=== PATIENT | male | born 1960 | race Caucasian/White ===

== ENCOUNTER 2020-01-09 07:31 | Outpatient (REF) | payer OTHER, SELFPAY ==
[2020-01-09 11:49] LABS: Estimated Average Glucose 154 mg/dL
[2020-01-15 22:12] LABS: Testosterone, Free 109.9 pg/mL (35.0-155.0); Testosterone, Total 509 ng/dL (250-1100)
== END 2020-01-09 07:32 | disposition home or self-care (01) ==
LOC: HO.MANLR 07:31
PROVIDERS: PCP Internal Medicine; Visit Provider Internal Medicine
DX: E11.9 Type 2 diabetes mellitus without complications (principal); R79.89 Other specified abnormal findings of blood chemistry
CPT/HCPCS: 83036; 84402; 84403

== ENCOUNTER 2020-05-06 07:40 | Outpatient (REF) | payer OTHER, SELFPAY ==
[2020-05-06 11:50] LABS: Alanine Aminotransferase 34 U/L (0-40); Albumin Level 4.2 g/dL (3.5-5.0); Alkaline Phosphatase 84 U/L (39-117); Anion Gap 13 (12-20); Aspartate Amino Transferase 29 U/L (5-37); Bilirubin Total 0.8 mg/dL (0.0-1.0); Blood Urea Nitrogen 14 mg/dL (9-16); Calcium 9.8 mg/dL (8.4-10.2); Carbon Dioxide 23 mmol/L (22-29); Chloride 107 mmol/L (96-108); Estimated Glomerular Filt Rate > 60; Glucose Fasting 167 mg/dL (60-99); Potassium 4.8 mmol/L (3.3-5.1); Sodium 138 mmol/L (135-145); Total Protein 6.8 g/dL (6.5-8.0)
[2020-05-06 16:09] LABS: Estimated Average Glucose 157 mg/dL; Hemoglobin A1c % 7.1 %
== END 2020-05-06 07:41 | disposition home or self-care (01) ==
LOC: HO.MANLDS 07:40
PROVIDERS: PCP Internal Medicine; Visit Provider Internal Medicine
DX: E11.9 Type 2 diabetes mellitus without complications (principal)
CPT/HCPCS: 36415; 80053; 83036

== ENCOUNTER 2020-08-13 07:40 | Outpatient (REF) | payer OTHER, SELFPAY ==
[2020-08-13 12:13] LABS: Alanine Aminotransferase 41 U/L (0-40); Albumin Level 4.3 g/dL (3.5-5.0); Alkaline Phosphatase 80 U/L (39-117); Anion Gap 12 (12-20); Aspartate Amino Transferase 23 U/L (5-37); Bilirubin Total 0.8 mg/dL (0.0-1.0); Blood Urea Nitrogen 20 mg/dL (9-16); Calcium 10.1 mg/dL (8.4-10.2); Carbon Dioxide 24 mmol/L (22-29); Chloride 106 mmol/L (96-108); Cholesterol 179 mg/dL; Estimated Glomerular Filt Rate > 60; Glucose Fasting 151 mg/dL (60-99); HDL Cholesterol 37 mg/dL; LDL Cholesterol Calculated 110 mg/dl; Potassium 4.7 mmol/L (3.3-5.1); Sodium 137 mmol/L (135-145); Total Protein 6.8 g/dL (6.5-8.0); Triglycerides 164 mg/dL
[2020-08-13 12:29] LABS: Estimated Average Glucose 160 mg/dL; Hemoglobin A1c % 7.2 %
[2020-08-13 12:35] LABS: Creatinine Urine 114.37 mg/dL; Microalbum/Creatinine Ratio Ur 8.7 ug/mg cr
== END 2020-08-13 07:41 | disposition home or self-care (01) ==
LOC: HO.MANLDS 07:40
PROVIDERS: PCP Internal Medicine; Visit Provider Internal Medicine
DX: E11.9 Type 2 diabetes mellitus without complications (principal)
CPT/HCPCS: 36415; 80053; 80061; 82043; 83036

== ENCOUNTER 2020-12-31 08:05 | Outpatient (REF) | payer OTHER, SELFPAY ==
[2020-12-31 11:23] LABS: Estimated Average Glucose 177 mg/dL; Hemoglobin A1c % 7.8 %
== END 2020-12-31 08:06 | disposition home or self-care (01) ==
LOC: HO.MANLDS 08:05
PROVIDERS: PCP Internal Medicine; Visit Provider Internal Medicine
DX: E11.9 Type 2 diabetes mellitus without complications (principal)
CPT/HCPCS: 36415; 83036

== ENCOUNTER 2021-04-07 07:32 | Outpatient (REF) | payer OTHER, SELFPAY ==
[2021-04-07 11:08] LABS: Estimated Average Glucose 134 mg/dL; Hemoglobin A1c % 6.3 %
== END 2021-04-07 07:33 | disposition home or self-care (01) ==
LOC: HO.MANLDS 07:32
PROVIDERS: PCP Internal Medicine; Visit Provider Internal Medicine
DX: E11.9 Type 2 diabetes mellitus without complications (principal)
CPT/HCPCS: 36415; 83036

== ENCOUNTER 2021-07-11 07:57 | Outpatient (REF) | payer OTHER, SELFPAY ==
[2021-07-11 11:41] LABS: Estimated Average Glucose 140 mg/dL; Hemoglobin A1c % 6.5 %
[2021-07-11 11:54] LABS: Creatinine Urine 116.25 mg/dL; Microalbum/Creatinine Ratio Ur 7.7 ug/mg cr
[2021-07-11 12:20] LABS: Alanine Aminotransferase 37 U/L (0-40); Albumin Level 4.3 g/dL (3.5-5.0); Alkaline Phosphatase 92 U/L (39-117); Anion Gap 11 (12-20); Aspartate Amino Transferase 23 U/L (5-37); Bilirubin Total 0.8 mg/dL (0.0-1.0); Blood Urea Nitrogen 19 mg/dL (9-16); Calcium 10.2 mg/dL (8.4-10.2); Carbon Dioxide 25 mmol/L (22-29); Chloride 106 mmol/L (96-108); Cholesterol 168 mg/dL; Estimated Glomerular Filt Rate 54; Glucose Fasting 144 mg/dL (60-99); HDL Cholesterol 37 mg/dL; LDL Cholesterol Calculated 118 mg/dl; Potassium 4.7 mmol/L (3.3-5.1); Sodium 137 mmol/L (135-145); Triglycerides 68 mg/dL
== END 2021-07-11 07:58 | disposition home or self-care (01) ==
LOC: HO.MANLDS 07:57
PROVIDERS: PCP Internal Medicine; Visit Provider Internal Medicine
DX: E11.9 Type 2 diabetes mellitus without complications (principal)
CPT/HCPCS: 36415; 80053; 80061; 82043; 83036

== ENCOUNTER 2021-11-04 10:35 | Outpatient (REF) | payer OTHER, SELFPAY ==
[2021-11-04 11:13] LABS: Estimated Average Glucose 134 mg/dL; Hemoglobin A1C 171.5325 umol/L; Hemoglobin A1c % 6.3 %
[2021-11-04 11:38] LABS: Creatinine Urine 34.72 mg/dL; Microalbumin Urine < 5.0 mg/L
[2021-11-04 11:42] LABS: Alanine Aminotransferase 31 U/L (0-40); Albumin Level 4.2 g/dL (3.5-5.0); Alkaline Phosphatase 83 U/L (39-117); Anion Gap 13 (12-20); Aspartate Amino Transferase 20 U/L (5-37); Bilirubin Total 0.9 mg/dL (0.0-1.0); Blood Urea Nitrogen 18 mg/dL (9-16); Calcium 10.2 mg/dL (8.4-10.2); Carbon Dioxide 25 mmol/L (22-29); Chloride 106 mmol/L (96-108); Cholesterol 128 mg/dL; Estimated Glomerular Filt Rate > 60; Glucose Random 156 mg/dL (60-115); HDL Cholesterol 36 mg/dL; LDL Cholesterol Calculated 70 mg/dl; Potassium 5.3 mmol/L (3.3-5.1); Sodium 139 mmol/L (135-145); Total Protein 6.7 g/dL (6.5-8.0); Triglycerides 111 mg/dL
[2021-11-04 11:56] LABS: Prostate Specific Antigen 0.78 ng/mL (<0.05-4.0)
== END 2021-11-04 10:36 | disposition home or self-care (01) ==
LOC: HO.MANLDS 10:35
PROVIDERS: Visit Provider Internal Medicine
DX: E11.9 Type 2 diabetes mellitus without complications (principal); Z12.5 Encounter for screening for malignant neoplasm of prostate
CPT/HCPCS: 36415; 80053; 80061; 82043; 83036; 84153

== ENCOUNTER 2021-12-23 11:52 | Outpatient (REF) | payer OTHER, SELFPAY ==
--- NOTE | ~2021-12-23 | MR_ITS ---
EXAMINATION: MR LUMBAR SPINE WITHOUT CONTRAST CLINICAL INFORMATION: 61-year-old with self-reported low back and right leg pain, with lower left leg numbness. Lumbar radiculopathy. COMPARISON: None TECHNIQUE: MRI of the lumbar spine was obtained using routine sequences without contrast. FINDINGS: Coronal Alignment: Normal. Sagittal Alignment: There is 4 mm of grade 1 degenerative spondylolisthesis at L4-L5 without spondylolysis. Otherwise normal lumbosacral alignment. Lumbosacral Junction: Normal. 5 nonrib-bearing lumbar-type vertebral bodies. Vertebral Bodies: Normal height. Disc Spaces and Endplates: Moderate disc space height loss at L4-L5 with mild disc desiccation, Schmorl's nodes and mild spondylosis. Remaining lumbar intervertebral disc space heights are well-maintained. There are Schmorl's nodes and disc desiccation with minor spondylosis at L5-S1. Tiny central Schmorl's nodes and mild disc desiccation at L3-L4, L2-L3 and L1-L2. [id number] disc space height loss with central Schmorl's nodes with disc desiccation at T11-T12 with mild spondylosis. Similar findings partially imaged at T10-T11 with a prominent Schmorl's node along the superior endplate of L1. Spinal Canal: No abnormal developmental findings. Bone Marrow: No significant marrow-replacing process or bone marrow edema. Type II degenerative marrow signal changes seen along the endplates of the T11 vertebral body anteriorly. Minimal type II degenerative marrow signal change seen along the anterosuperior corner of L2. Conus Medullaris: Terminates at L1-L2. Morphology and signal is normal. Intradural Nerve Roots: Within normal limits. L5-S1: Diffuse disc bulging is noted with a superimposed left subarticular to foraminal disc herniation with a concentric annular fissure, with mild bilateral facet arthrosis without significant central canal stenosis. Left subarticular disc herniation slightly encroaches on the origin of the left S1 nerve root sleeve. There is severe left-sided and [id number] right-sided neural foraminal stenosis, with impingement on the exiting left L5 nerve root. There is also a mild degree of encroachment on the exiting right L5 nerve root. L4-L5: Unroofing of the posterior disc margin consistent with grade 1 degenerative spondylolisthesis, with superimposed diffuse disc bulging and a superimposed central to right subarticular extruded disc herniation with a cephalad migrated extruded fragment projecting in the right lateral recess at the level of mid body L4 measuring 1.6 cm in greatest craniocaudal height and approximately 0.8 cm in maximum transverse diameter. This likely encroaches on the traversing right L4 nerve root. There is mild flattening of the ventral dural sac at the level of the intervertebral disc space and there is ligamentum flavum thickening with severe bilateral facet arthrosis with subchondral marrow edema on both sides of the facet joints bilaterally with associated subchondral cyst formation and joint effusions. There is borderline central spinal canal stenosis. There is crowding of the subarticular zones, left more than right, and there is severe left-sided and moderate right-sided neural foraminal stenosis, with impingement on the exiting L4 nerve roots, left more than right. L3-L4: Diffuse disc bulging is noted with slight flattening of the ventral dural sac, with mild bilateral facet arthropathy without significant spinal canal stenosis. Mild foraminal narrowing is noted without neural impingement. L2-L3: Small inferior foraminal disc protrusion on the left without neural impingement. Minor facet arthrosis noted without significant canal stenosis. Mild left-sided foraminal narrowing is noted. L1-L2: No significant disc bulge or herniation and no significant facet arthrosis, canal or neuroforaminal stenosis. Paraspinal/Retroperitoneal: The paravertebral soft tissues appear unremarkable. Incidental note is made of multiple simple-appearing bilateral renal parapelvic cysts. Limited evaluation.?No specific follow up recommended based on the current ACR Best Practice Guidelines.?Additionally, there is a 2.9 x 2.6 cm left adrenal mass. Recommend CT of the abdomen without and with contrast to further assess this. MR/MR lumbar spine wo con IMPRESSION: 1. Grade 1 degenerative spondylolisthesis at L4-L5 noted, with disc bulging and a central to right subarticular extruded disc herniation with cephalad migration of a sequestered disc fragment on the right at this level with extensive bilateral facet arthropathy, with severe left-sided and moderate right-sided neural foraminal stenosis, with impingement on the exiting L4 nerve roots bilaterally. 2. Multilevel disc bulging as described above and a small foraminal disc protrusion on the left at L2-L3, with multilevel bilateral facet arthropathy. There is severe left-sided and [id number]-[id number]-gqczal right-sided neural foraminal stenosis at L5-S1 with impingement on the exiting L5 nerve roots, left more than right. 3. Incidental 2.9 cm left adrenal mass. Recommend CT of the abdomen without and with contrast to further assess this utilizing an adrenal mass protocol. The [facility] staff will call to confirm receipt of this report with acknowledgement of the findings and any recommendations.
== END 2021-12-23 11:53 | disposition home or self-care (01) ==
LOC: HO.MRI 11:52
PROVIDERS: PCP Internal Medicine; Visit Provider Physician Assistant
DX: M54.16 Radiculopathy, lumbar region (principal)
CPT/HCPCS: 72148

== ENCOUNTER 2022-02-03 12:13 | Outpatient (REF) | payer OTHER, SELFPAY ==
[2022-02-03 15:07] LABS: Alanine Aminotransferase 30 U/L (0-40); Albumin Level 3.9 g/dL (3.5-5.0); Alkaline Phosphatase 110 U/L (39-117); Anion Gap 15 (12-20); Aspartate Amino Transferase 15 U/L (5-37); Bilirubin Total 0.4 mg/dL (0.0-1.0); Blood Urea Nitrogen 12 mg/dL (9-16); Calcium 10.6 mg/dL (8.4-10.2); Carbon Dioxide 26 mmol/L (22-29); Chloride 103 mmol/L (96-108); Estimated Glomerular Filt Rate > 60; Glucose Random 256 mg/dL (60-115); Potassium 5.2 mmol/L (3.3-5.1); Sodium 139 mmol/L (135-145); Total Protein 6.5 g/dL (6.5-8.0)
== END 2022-02-03 12:14 | disposition home or self-care (01) ==
LOC: HO.MANLDS 12:13
PROVIDERS: Visit Provider Physician Assistant
DX: E11.9 Type 2 diabetes mellitus without complications (principal)
CPT/HCPCS: 36415; 80053

== ENCOUNTER 2022-02-10 10:50 | Outpatient (REF) | payer OTHER, SELFPAY ==
--- NOTE | ~2022-02-10 | CT_ITS ---
EXAMINATION: CT ABDOMEN WITHOUT AND WITH CONTRAST CLINICAL INFORMATION: Mass of left adrenal gland. COMPARISON: None TECHNIQUE: Contiguous axial thin section helical images of the abdomen were performed before and after the administration of oral contrast and 85 mL of Omnipaque 350 intravenous contrast. The data set was reformatted in the coronal and sagittal planes and reviewed on an independent workstation. This CT examination was performed using dose optimization techniques as appropriate, variously including the following: *Automated exposure control *Adjustment of mA and/or kV according to patient size (this includes techniques or standardized protocols for targeted exams where dose is matched to indication/reason for exam; i.e. extremities or head) *Use of iterative reconstruction technique DLP: 425 mGy-cm FINDINGS: LUNG BASES: There is plate-like atelectasis at the right lung base. Heart size is normal. LIVER, GALLBLADDER, AND BILIARY TREE: The liver is normal in size, contour and density. There is a non-enhancing 9 mm hypodensity in the left hepatic lobe, axial image 26/3. No additional lesions seen. There is no intrahepatic ductal dilatation. The gallbladder has been surgically removed. PANCREAS: The pancreas is homogeneous in density and normal in size. The peripancreatic fat borders are preserved. SPLEEN: The spleen is unremarkable. ADRENAL GLANDS AND KIDNEYS: The right adrenal gland is unremarkable. There is a 3.0 x 2.4 x 3 cm lesion in the left adrenal gland. On precontrast exam it measures 14 Hounsfield units on post contrast exam it measures 20 Hounsfield units, and on delayed images it measures 25 Hounsfield units. The absolute washout measures -83.3%, which is indeterminate. The relative washout measures -25.0% which corresponds to indeterminate. The right kidney is unremarkable. There are left parapelvic renal cysts. No radiopaque calculi or enhancing renal mass or hydronephrosis seen. BOWEL LOOPS: There is scattered stool, diverticula and gas seen in the colon without distention. The small bowel loops are of normal caliber. Appendix is partially visualized and appears of normal caliber. No free air or free fluid seen. LYMPH NODES: No abnormal retroperitoneal lymph nodes seen. VASCULAR: The abdominal aorta is of normal caliber. BONES: There is a disc prosthesis at L4-L5 disc level with bilateral pedicular screws and interconnecting rods. No aggressive lytic or sclerotic process seen. CT/CT abdomen wo/w IV con IMPRESSION: 1. 3 cm left adrenal lesion. By CT adrenal washout protocol the lesion is indeterminate. 2. Left parapelvic renal cysts. No radiopaque renal calculi or hydronephrosis. 3. Mild constipation. Colonic diverticulosis without diverticulitis. Fleischner guidelines were followed.
[2022-02-10] MEDS: iohexoL 350 MG/ML 100 ML INFUS..BTL IV (11:44)
== END 2022-02-10 10:51 | disposition home or self-care (01) ==
LOC: HO.CT 10:50
PROVIDERS: PCP Internal Medicine; Visit Provider Physician Assistant
DX: E27.8 Other specified disorders of adrenal gland (principal)
CPT/HCPCS: 74170; Q9967

== ENCOUNTER 2022-02-13 07:32 | Outpatient (REF) | payer OTHER, SELFPAY ==
[2022-02-13 14:48] LABS: Estimated Average Glucose 192 mg/dL; Hemoglobin A1c % 8.3 %
== END 2022-02-13 07:33 | disposition home or self-care (01) ==
LOC: HO.MANLDS 07:32
PROVIDERS: Visit Provider Internal Medicine
DX: E11.9 Type 2 diabetes mellitus without complications (principal)
CPT/HCPCS: 36415; 83036

== ENCOUNTER 2022-04-28 13:44 | Outpatient (REF) | payer OTHER, SELFPAY ==
[2022-04-28 18:49] LABS: Creatinine Urine 147.05 mg/dL; Microalbum/Creatinine Ratio Ur 9.5 ug/mg cr
[2022-04-28 18:49] LABS: Alanine Aminotransferase 26 U/L (0-40); Albumin Level 4.1 g/dL (3.5-5.0); Alkaline Phosphatase 109 U/L (39-117); Anion Gap 13 (12-20); Aspartate Amino Transferase 16 U/L (5-37); Bilirubin Total 0.6 mg/dL (0.0-1.0); Blood Urea Nitrogen 17 mg/dL (9-16); Calcium 10.1 mg/dL (8.4-10.2); Carbon Dioxide 22 mmol/L (22-29); Chloride 109 mmol/L (96-108); Cholesterol 124 mg/dL; Estimated Glomerular Filt Rate > 60; Glucose Random 97 mg/dL (60-115); HDL Cholesterol 39 mg/dL; LDL Cholesterol Calculated 66 mg/dl; Potassium 4.2 mmol/L (3.3-5.1); Sodium 140 mmol/L (135-145); Total Protein 6.4 g/dL (6.5-8.0); Triglycerides 95 mg/dL
[2022-04-29 05:18] LABS: Estimated Average Glucose 134 mg/dL; Hemoglobin A1c % 6.3 %
== END 2022-04-28 13:45 | disposition home or self-care (01) ==
LOC: HO.MANLDS 13:44
PROVIDERS: Visit Provider Internal Medicine
DX: E11.9 Type 2 diabetes mellitus without complications (principal)
CPT/HCPCS: 36415; 80053; 80061; 82043; 83036

== ENCOUNTER 2022-08-05 12:03 | Outpatient (REF) | payer OTHER, SELFPAY ==
[2022-08-05 14:58] LABS: Estimated Average Glucose 114 mg/dL; Hemoglobin A1c % 5.6 %
[2022-08-05 15:13] LABS: Creatinine Urine 339.92 mg/dL; Microalbum/Creatinine Ratio Ur 10.5 ug/mg cr
[2022-08-05 15:18] LABS: Alanine Aminotransferase 27 U/L (0-40); Albumin Level 4.2 g/dL (3.5-5.0); Alkaline Phosphatase 98 U/L (39-117); Anion Gap 17 (12-20); Aspartate Amino Transferase 24 U/L (5-37); Bilirubin Total 1.3 mg/dL (0.0-1.0); Blood Urea Nitrogen 22 mg/dL (9-16); Calcium 10.2 mg/dL (8.4-10.2); Carbon Dioxide 20 mmol/L (22-29); Chloride 107 mmol/L (96-108); Cholesterol 97 mg/dL; Estimated Glomerular Filt Rate 59; Glucose Random 80 mg/dL (60-115); HDL Cholesterol 41 mg/dL; LDL Cholesterol Calculated 47 mg/dl; Potassium 4.4 mmol/L (3.3-5.1); Sodium 140 mmol/L (135-145); Total Protein 6.5 g/dL (6.5-8.0); Triglycerides 49 mg/dL
== END 2022-08-05 12:04 | disposition home or self-care (01) ==
LOC: HO.MANLDS 12:03
PROVIDERS: Visit Provider Internal Medicine
DX: E11.9 Type 2 diabetes mellitus without complications (principal)
CPT/HCPCS: 36415; 80053; 80061; 82043; 83036

== ENCOUNTER 2022-11-20 07:39 | Outpatient (REF) | payer OTHER, SELFPAY ==
[2022-11-20 13:33] LABS: Estimated Average Glucose 111 mg/dL; Hemoglobin A1c % 5.5 % (<6.0)
== END 2022-11-20 07:40 | disposition home or self-care (01) ==
LOC: HO.MANLDS 07:39
PROVIDERS: Visit Provider Internal Medicine
DX: E11.9 Type 2 diabetes mellitus without complications (principal)
CPT/HCPCS: 36415; 83036

== ENCOUNTER 2023-02-16 07:22 | Outpatient (REF) | payer SELFPAY ==
[2023-02-16 13:44] LABS: Estimated Average Glucose 137 mg/dL; Hemoglobin A1c % 6.4 % (<6.0)
[2023-02-16 14:27] LABS: Alanine Aminotransferase 38 U/L (0-40); Alkaline Phosphatase 109 U/L (39-117); Anion Gap 13 (12-20); Aspartate Amino Transferase 29 U/L (5-37); Bilirubin Total 0.5 mg/dL (0.0-1.0); Blood Urea Nitrogen 19 mg/dL (9-16); Calcium 9.9 mg/dL (8.4-10.2); Carbon Dioxide 22 mmol/L (22-29); Chloride 107 mmol/L (96-108); Cholesterol 133 mg/dL (<200); Estimated Glomerular Filt Rate > 60; Glucose Random 127 mg/dL (60-115); HDL Cholesterol 45 mg/dL (>40); LDL Cholesterol Calculated 75 mg/dL (<100); Potassium 4.1 mmol/L (3.3-5.1); Sodium 138 mmol/L (135-145); Total Protein 6.9 g/dL (6.5-8.0); Triglycerides 65 mg/dL (<150)
== END 2023-02-16 07:23 | disposition home or self-care (01) ==
LOC: HO.MANLDS 07:22
PROVIDERS: Visit Provider Internal Medicine
DX: E11.9 Type 2 diabetes mellitus without complications (principal)
CPT/HCPCS: 36415; 80053; 80061; 83036

== ENCOUNTER 2023-06-01 07:36 | Outpatient (REF) | payer OTHER, SELFPAY ==
[2023-06-01 13:12] LABS: MANUAL DIFF FLAG NO
[2023-06-01 13:46] LABS: Basophils Absolute Auto 0.1 X10*3/uL (0.0-0.2); Basophils Percent Auto 1.1 % (0-2); Eosinophils Absolute Auto 0.3 X10*3/uL (0.0-0.4); Eosinophils Percent Auto 5.4 % (0-4); Hematocrit 47.5 % (42.0-52.0); Hemoglobin 15.7 g/dl (14.0-18.0); Imm Gran Abs Auto 0.02 X10*3/uL (0.00-0.03); Imm Gran Pct Auto 0.4 % (0.0-0.4); Lymphocytes Absolute Auto 1.9 X10*3/uL (1.2-4.9); Lymphocytes Percent Auto 34.9 % (20-40); Mean Corpuscular HGB Conc 33.1 g/dl (31.0-36.0); Mean Corpuscular Volume 90.8 fL (80.0-98.0); Mean Platelet Volume 11.2 fL (9.4-12.4); Monocytes Absolute Auto 0.6 X10*3/uL (0.1-1.2); Monocytes Percent Auto 10.9 % (2-11); Neutrophils Absolute Auto 2.6 x10*3/uL (2.0-8.3); Neutrophils Percent Auto 47.3 % (45-73); Platelet Count 256 X10*3/uL (160-400); Red Blood Count 5.23 X10*6/uL (4.60-5.80); Red Cell Distribution Width 13.2 % (11.0-16.0); White Blood Count 5.4 X10*3/uL (4.8-10.8)
[2023-06-01 13:53] LABS: Estimated Average Glucose 131 mg/dL; Hemoglobin A1C 170.2796 umol/L; Hemoglobin A1c % 6.2 % (<6.0)
[2023-06-01 14:11] LABS: Alanine Aminotransferase 47 U/L (0-40); Albumin Level 4.1 g/dL (3.5-5.0); Alkaline Phosphatase 111 U/L (39-117); Anion Gap 11 (12-20); Aspartate Amino Transferase 25 U/L (5-37); Bilirubin Total 0.6 mg/dL (0.0-1.0); Blood Urea Nitrogen 27 mg/dL (9-16); Calcium 9.7 mg/dL (8.4-10.2); Carbon Dioxide 22 mmol/L (22-29); Chloride 111 mmol/L (96-108); Cholesterol 130 mg/dL (<200); Estimated Glomerular Filt Rate 60; Glucose Random 158 mg/dL (60-115); HDL Cholesterol 42 mg/dL (>40); LDL Cholesterol Calculated 76 mg/dL (<100); Sodium 139 mmol/L (135-145); Total Protein 6.8 g/dL (6.5-8.0); Triglycerides 64 mg/dL (<150)
== END 2023-06-01 07:37 | disposition home or self-care (01) ==
LOC: HO.MANLDS 07:36
PROVIDERS: Visit Provider Physician Assistant
DX: E78.2 Mixed hyperlipidemia (principal); E11.9 Type 2 diabetes mellitus without complications
CPT/HCPCS: 36415; 80053; 80061; 83036; 85025

== ENCOUNTER 2023-08-30 07:39 | Outpatient (REF) | payer OTHER, SELFPAY ==
[2023-08-30 13:50] LABS: Estimated Average Glucose 140 mg/dL; Hemoglobin A1c % 6.5 % (<6.0)
[2023-08-30 13:55] LABS: Alanine Aminotransferase 31 U/L (0-40); Albumin Level 4.2 g/dL (3.5-5.0); Alkaline Phosphatase 92 U/L (39-117); Anion Gap 13 (12-20); Aspartate Amino Transferase 28 U/L (5-37); Bilirubin Total 0.7 mg/dL (0.0-1.0); Blood Urea Nitrogen 21 mg/dL (9-16); Calcium 9.7 mg/dL (8.4-10.2); Carbon Dioxide 22 mmol/L (22-29); Chloride 110 mmol/L (96-108); Cholesterol 132 mg/dL (<200); Estimated Glomerular Filt Rate > 60; Glucose Random 150 mg/dL (60-115); HDL Cholesterol 50 mg/dL (>40); LDL Cholesterol Calculated 72 mg/dL (<100); Potassium 4.9 mmol/L (3.3-5.1); Sodium 140 mmol/L (135-145); Total Protein 7.2 g/dL (6.5-8.0); Triglycerides 51 mg/dL (<150)
== END 2023-08-30 07:40 | disposition home or self-care (01) ==
LOC: HO.MANLDS 07:39
PROVIDERS: Visit Provider Internal Medicine
DX: E11.9 Type 2 diabetes mellitus without complications (principal)
CPT/HCPCS: 36415; 80053; 80061; 83036

== ENCOUNTER 2024-07-04 07:26 | Outpatient (REF) | payer OTHER, SELFPAY ==
--- OUTSIDE RECORDS SUMMARY | 2024-07-04 07:29 | XMS_ITS | Data Portability ---
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) MDM MODERATE MUST MEET 2 OUT OF 3 ELEMENTS: PROBLEMS, DATA OR RISK ELEMENT 1: PROBLEMS ADDRESSED 1 OR MORE CHRONIC ILLNESS WITH EXACERBATION OR 2 OR MORE STABLE CHRONIC ILLNESSES OR 1 UNDIAGNOSED NEW PROBLEM OR 1 ACUTE ILLNESS W/SYMPTOMS OR 1 ACUTE COMPLICATED INJURY ELEMENT 2: DATA MUST MEET 1 OF 3 CATEGORIES CATEGORY 1: REVIEW OF PRIOR EXTERNAL NOTES, REVIEW OF RESULTS, ORDERING OF EACH TEST, ASSESSMENT REQUIRING INDEPENDENT HISTORIAN OR CATEGORY 2: INDEPENDENT INTERPRETATION OF TESTS BY ANOTHER PHYSICIAN OR SPECIALIST OR CATEGORY 3: DISCUSSION OF MGT OR TEST INTERPRETATION W/EXTERNAL PHYSICIAN OR SPECIALIST ELEMENT 3: RISK RISK OF COMPLICATIONS AND/OR MORBIDITY OR MORTALITY OF PATIENT MANAGEMENT PROVIDER MUST THOROUGHLY DOCUMENT EACH ELEMENT THAT IS COVERED Not available 09/06/2023 16:05:31 03/13/2024 03/13/2024 Patient agreed and verbally consents to this audio and video Telehealth appt via a secure platform [email or web address] Not available 03/13/2024 11:33:37 04/12/2024 04/12/2024 [address] [place] [address]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) MDM HIGH MUST MEET 2 OUT OF 3 ELEMENTS: PROBLEMS, DATA OR RISK ELEMENT 1: PROBLEMS 1 OR MORE CHRONIC ILLNESS W/SEVERE EXACERBATION, PROGRESSION MAY REQUIRE HOSPITAL LEVEL CARE OR 1 ACUTE OR CHRONIC ILLNESS OR INJURY THAT POSES A THREAT TO LIFE OR BODILY FUNCTION ELEMENT 2: DATA: MUST MEET 2 OF 3 CATEGORIES CATEGORY 1 REVIEW OF PRIOR EXTERNAL NOTES REVIEW OF THE RESULTS ORDERING OF EACH TEST ASSESSMENT REQUIRING INDEPENDENT HISTORIAN(S) CATEGORY 2: INDEPENDENT INTERPRETATION OF TESTS BY ANOTHER PROVIDER/SPECIALI ST CATEGORY 3: DISCUSSION OF MGT OR TEST INTERPRETATION W/EXTERNAL PHYSICIAN/SPECIAL IST ELEMENT 3: RISK HIGH RISK OF MORBIDITY FROM ADDITIONAL DIAGNOSTIC TESTING OR TREATMENT PROVIDER MUST THOROUGHLY DOCUMENT EACH ELEMENT THAT IS COVERED Not available 04/12/2024 16:28:23 Plan of Treatment Reminders Order Date Submit Date Provider Last Modified By Organization Details Last Modified Time Details Appointments FOLLOW UP 15 2024 04:15P M DR BETANCOURT Not available Not available Not available Lab HbA1c (hemoglob in A1c), blood 2024 025 [facility], [address] [place] [address], [place], [address], 04/12/2024 16:28:06 CMP, serum or plasma 2023 024 [email or web address] [facility] [address], [address], 11/12/2023 09:48:14 lipid panel, blood 2023 024 ATHENAFAX [facility] [address], [address], 11/12/2023 09:15:52 hemoglobi n A1c, QN, blood 2023 024 [facility] [address], [address], 11/12/2023 15:35:40 CBC w/ auto diff 2023 024 [facility] [address], [address], 04/10/2024 13:46:31 hemoglobi n A1c, QN, blood 2023 024 [facility] [address], [address], 11/12/2023 15:35:40 CBC w/ auto diff 2024 024 curt Jimenez [facility] [place], [address] [place] [address], [place], [address], 04/10/2024 13:46:31 Referral None recorded. Procedures None recorded. Surgeries None recorded. Imaging CT, heart, w/o contrast, w/ coronary calcium score 2023 024 [facility], [facility] [place], [address], 12/29/2023 08:17:40 Medication Orders prednison e 10 mg tablet 2023 024 [facility] [address] [place], [address], 03/13/2024 11:33:24 levofloxa ministerio 500 mg tablet 2023 025 [facility] [address] [place], [address], 04/12/2024 16:02:32 codeine 10 mg-guaife nesin 100 mg/5 mL oral liquid 2023 025 [facility] [address] [place], [address], 04/12/2024 16:02:39 cephalexi n 500 mg capsule 2023 024 [facility] [address] [place], [address], 12/13/2023 16:14:36 Patient TargetsNo targets recorded. Patient Instructions Encounter Date Encounter Id Patient Instructions Last Modified By Organization Details Last Modified Time 12/13/2023 [id number] hyperparathyroid i sm: care instructions Not available 12/13/2023 16:34:30 parathyroidectom y : before your surgery Not available 12/13/2023 16:34:30 04/12/2024 [id number] hyperparathyroid i sm: care instructions Not available 04/12/2024 16:26:55 parathyroidectom y : before your surgery Not available 04/12/2024 16:26:55 high blood pressure: care instructions Not available 04/12/2024 16:26:55 learning about high blood pressure Not available 04/12/2024 16:26:55 high cholesterol : care instructions [email or web address] Not available 04/12/2024 16:26:55 Reason for Referral None Reported. Results Created Date Observation Date Name Description Value Unit Range Abnormal Flag Note LastModifiedBy Organization Detail LastModifiedTime 01/13/20 24 01/13/2024 CT, heart , w/o contr ast, w/ coron celestine calci um score No observ ation record ed. [email or web address] [facility] [address], [place], [address], 01/17/2024 09:22:30 Result Notes None recorded. Problems Name Problem SNOMED Code Status Onset Date Resolution Date Notes Provider Name and Address Organization Details Recorded Time Type 2 diabetes mellitus 26536126 Active 2017 Kristy tarango [facility] 4 10:06:39 COVID-19 183382489 Active 2021 Kristy tarango [facility] 4 10:07:35 Hand pain 64320569 Active 2021 Kristy tarango [facility] 4 10:07:35 Hand pain 70682505 Active 2021 Kristy tarango [facility] 4 10:07:35 Paronych ia of toe of left foot 5665523745 2770853 Active 2021 Kristy tarango [facility] 4 10:07:35 Lumbago with sciatica 516072029 Active 2021 Kristy tarango [facility] 4 10:07:24 Constipa tion 20628407 Active 2021 Kristy tarango [facility] 4 10:07:35 Lumbar radiculo mayte 964100836 Active 2021 Kristy tarango [facility] 4 10:07:24 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 9354165066 49270 Active 2021 Kristy tarango [facility] 4 10:07:24 Mass of left adrenal gland 7772194321 0115325 Active 2021 Kristy tarango [facility] 4 10:07:24 Spinal stenosis of lumbar region 38858941 Active 2021 Kristy tarango [facility] 4 10:07:24 Sinus tachycar surinder 02780438 Active 2021 Not Available [facility] 3 09:31:20 Ingrowin g toenail 918495188 Active 2022 Kristy tarango [facility] 4 10:07:35 Hyperlip idemia 70465819 Active 2017 resolved with diet Kristy tarango [facility] 4 10:07:24 Impaired fasting glycemia 150716786 Completed 201701/26/2018 Issac Betancourt, DO [address] [place] [address], [address], [facility] 8 16:36:31 Hyperpar athyroid ism 65113685 Active 2017 Kristy tarango [facility] 4 10:07:24 Pancreat itis 82199406 Active 2017 Resolved Kristy tarango [facility] 4 10:07:24 [facility] hyperten jen 19436465 Active 2017 Kristy tarango [facility] 4 10:07:24 Streptoc occal sore throat 54422879 Active 2023 Kristy tarango [facility] 4 10:07:35 Erectile dysfunct ion 231661333 [facility] 20[facility] 4 10:07:24 Infectio n of toe 929259199 [facility] 20[facility] 4 10:07:35 Cough 42268289 Active 2023 Issac Betancourt DO [address] [place], [address], [facility] 4 11:23:49 Pneumoni a 298027150 Active 2023 SAVITA MANNING [address] [place] [address], [address], [facility] 4 11:31:40 Problem Notes None recorded. Procedures Surgical History Date Name Laterality Status Provider Name and Address Organization Details Recorded Time 4 Removal of Foreign Body completed SAVITA MANNING [address] [place] [address], [address], [facility] 05/31/2023 12:02:13 Imaging Results Imaging Date Name Status LastModified by Organiz ation Details LastModified Time 01/13/2024 CT, heart, w/o contrast, w/ coronary calcium score completed [email or web address] [address], [place], [address], 01/17/2024 09:22:30 Procedure Notes None recorded. Medical Equipment None Reported. Allergies Allergen ID Allergen Name Allergen Category Reaction Reaction Severity Criticality Documentation Date Start Date Code Code System Note Provider Name and Address Organization Details Recorded Time 93 lisinopri l medicatio n nausea Not available Not available 05/12/2017 35493 RxNorm Nancy Igel [facility] 8 16:19:55 94 doxycycli ne Not available rash Not available Not available 05/12/2017 3640 RxNorm Nancy Igel [facility] 8 16:20:19 Medications Name Sig Start Date Stop Date Status Note LastModified by Organization Details LastModified Time losartan 50 mg tablet TAKE 1 TABLET BY MOUTH EVERY DAY FOR 30 DAYS 07/16 completed Not Available Not Available Not Available amoxicillin 500 mg capsule TAKE 1 CAPSULE BY MOUTH EVERY 8 HOURS UNTIL GONE 08/26 completed Not Available Not Available Not Available metformin 500 mg tablet 1 tab bid 09/21 completed Not Available Not Available Not Available prednisone 10 mg tablet 40 mg x 3 days30 mg x 3 days20 mg x 3 days10 mg x 3 days active Not Available Not Available No t Available albuterol sulfate 2.5 mg/3 mL (0.083 %) solution for nebulizatio n prn 08/19 completed Not Available Not Available Not Available sildenafil 50 mg tablet TAKE 1 TABLET BY MOUTH as needed active Not Available Not Available No t Available azithromyci n 250 mg tablet TAKE 2 TABLETS BY MOUTH TODAY, THEN TAKE 1 TABLET DAILY FOR 4 DAYS DIRECTED 04/12 completed Not Available Not Available Not Available tizanidine 4 mg tablet TAKE 1 TABLET BY MOUTH EVERY 8 HOURS,X30 DAYS 02/20 completed Not Available Not Available Not Available senna 8.6 mg tablet TAKE 2 TABLETS BY MOUTH EVERY DAY FOR 14 DAYS NEEDED 05/30 completed Not Available Not Available Not Available meloxicam 15 mg tablet TAKE 1 TABLET BY MOUTH EVERY DAY active Not Available Not Available No t Available prednisone 20 mg tablet 06/16 completed Not Available Not Available Not Available sulfamethox azole 800 mg-trimetho prim 160 mg tablet 01/31 completed Not Available Not Available Not Available carvedilol 3.125 mg tablet TAKE 1 TABLET BY MOUTH TWICE A DAY active Not Available Not Available No t Available ciclopirox 8 % topical solution 01/06 completed Not Available Not Available Not Available amoxicillin 875 mg tablet TAKE 2 TABLETS SOON POSSIBLE THEN 1 TABLET ORALLY EVERY 12 HOURS UNTIL DONE, USE PROBIOTIC S 12/12 completed Not Available Not Available Not Available cephalexin 500 mg capsule TAKE 1 CAPSULE BY MOUTH THREE TIMES A DAY DIRECTED FOR 10 DAYS 12/12 completed Not Available Not Available Not Available metformin 1,000 mg tablet TAKE 1 TABLET BY MOUTH TWICE A DAY 11/24 completed Not Available Not Available Not Available losartan 25 mg tablet TAKE 1 TABLET BY MOUTH EVERY DAY 01/06 completed Not Available Not Available Not Available diclofenac sodium 75 mg tablet,terry yed release TAKE 1 TABLET BY MOUTH TWICE A DAY WITH MEALS FOR 30 DAYS active Not Available Not Available No t Available codeine 10 mg-guaifene sin 100 mg/5 mL oral liquid Take 10 mL every 4 hours by oral route. 04/12 completed Not Available Not Available Not Available mupirocin 2 % topical ointment APPLY A SMALL AMOUNT TO THE AFFECTED AREA BY TOPICAL ROUTE 3 TIMES PER DAY 01/06 completed Not Available Not Available Not Available cefuroxime axetil 500 mg tablet 06/16 completed Not Available Not Available Not Available levofloxaci n 500 mg tablet 04/12 completed Not Available Not Available Not Available levofloxaci n 750 mg tablet 06/16 completed Not Available Not Available Not Available losartan 100 mg tablet TAKE 1 TABLET BY MOUTH EVERY DAY 2024 active Not Available Not Available Not Avai lable oxycodone 5 mg tablet TAKE 2 TABLET BY MOUTH EVERY 4 HOURS,X7 DAYS, NEEDED FOR PAIN , SEVERE 02/20 completed Not Available Not Available Not Available cyclobenzap rine 5 mg tablet 12/16 completed Not Available Not Available Not Available metformin ER 750 mg tablet,exte nded release 24 hr Take 1 tablet every day by oral route for 30 days. 01/26 completed Not Available Not Available Not Available rosuvastati n 5 mg tablet TAKE 1 TABLET BY MOUTH EVERY DAY 05/06 completed Not Available Not Available Not Available rosuvastati n 10 mg tablet TAKE 1 TABLET BY MOUTH EVERY DAY active Not Available Not Available No t Available Boostrix Tdap 2.5 Lf unit-8 mcg-5 Lf/0.5 mL intramuscul ar syringe ADMINISTE R 0.5ML IN THE MUSCLE DIRECTED 05/08 completed Not Available Not Available Not Available ProAir HFA 90 mcg/actuati on aerosol inhaler prn active Not Available Not Available Not Available oxycodone 10 mg tablet Take 1 tablet every 4 hours by oral route as needed for 14 days. 02/20 completed Not Available Not Available Not Available diclofenac 1 % topical gel APPLY 2 GRAMS TO THE AFFECTED AREA(S) BY TOPICAL ROUTE 4 TIMES PER DAY 07/16 completed Not Available Not Available Not Available Prevnar 13 (PF) 0.5 mL intramuscul ar syringe ADMINISTE R 0.5ML IN THE MUSCLE DIRECTED 08/19 completed Not Available Not Available Not Available Trulicity 0.75 mg/0.5 mL subcutaneou s pen injector INJECT 0.5 ML SUBCUTANE OUSLY EVERY WEEK FOR 28 DAYS 05/30 completed Not Available Not Available Not Available Shingrix (PF) 50 mcg/0.5 mL intramuscul ar suspension, kit ADMINISTE R 0.5ML IN THE MUSCLE DIRECTED 08/19 completed Not Available Not Available Not Available Fluzone Quad (PF) 60 mcg(15 mcgx4)/0.5 mL intramuscul ar syringe 03/21 completed Not Available Not Available Not Available Fluzone Quad (PF) 60 mcg (15 mcg x 4)/0.5 mL IM syringe ADMINISTE R 0.5ML IN THE MUSCLE DIRECTED 05/08 completed Not Available Not Available Not Available Trulicity 3 mg/0.5 mL subcutaneou s pen injector INJECT 0.5 ML SUBCUTANE OUSLY EVERY WEEK FOR 28 DAYS active Not Available Not Available No t Available BinaxNOW COVID-19 Ag Self Test kit TEST DIRECTED TODAY 08/12 completed Not Available Not Available Not Available Vitals Date Recorded Body height Body mass index (BMI) Body weight Heart rate Oxygen saturation Oxygen saturation in Arterial blood by Pulse oximetry Systolic blood pressure Diastolic blood pressure Provider Name and Address Organization Details Last Updated DateTime 4 165.74 cm 30.5 kg/m2 17872.5 9 g 70 /min 97 % 97 % 160 mm[Hg] 80 mm[Hg] Sapna Martin [facility] 4 14:07:53 Date Recorded Body height Body mass index (BMI) Body weight Heart rate Oxygen saturation Oxygen saturation in Arterial blood by Pulse oximetry Systolic blood pressure Diastolic blood pressure Provider Name and Address Organization Details Last Updated DateTime 4 165.74 cm 30.9 kg/m2 78346.1 3 g 94 /min 97 % 97 % 166 mm[Hg] 94 mm[Hg] Kristy Worley [facility] 4 15:48:06 Date Recorded Body height Body mass index (BMI) Body weight Heart rate Oxygen saturation Oxygen saturation in Arterial blood by Pulse oximetry Systolic blood pressure Diastolic blood pressure Provider Name and Address Organization Details Last Updated DateTime 4 165.74 cm 31 kg/m2 61163.3 7 g 90 /min 95 % 95 % 144 mm[Hg] 82 mm[Hg] Sapna Mario [facility] 4 16:16:06 Date Recorded Body height Body mass index (BMI) Body weight Heart rate Oxygen saturation Oxygen saturation in Arterial blood by Pulse oximetry Systolic blood pressure Diastolic blood pressure Provider Name and Address Organization Details Last Updated DateTime 5 165.74 cm 33 kg/m2 49723.4 7 g 86 /min 96 % 96 % 160 mm[Hg] 80 mm[Hg] Sapna Martin [facility] 5 16:03:50 Social History Question Answer Notes LastModified by Organizat ion Details LastModified Time Tobacco Smoking Status [facility] 16:23:36 What Was The Date Of Your Most Recent Tobacco Screening? 04/12/2024 [email or web address] Information not available 04/12/2024 Do You Or Have You Ever Used Any Other Forms Of Tobacco Or Nicotine? No [email or web address] Information not available 02/23/2023 Sex: Unknown Functional Status None recorded. Mental Status None recorded. Family History Nothing Reported. Medical History No medical history recorded. Immunizations Vaccine Type Date Status Note Provider Nam e and Address Organization Details Recorded Time pneumococcal polysaccharide PPV23 0 completed Not Available [facility] 12/14/2021 18:03:00 COVID-19, mRNA, LNP-S, bivalent, PF, 50 mcg/0.5 mL or 25mcg/0.25 mL dose 2 completed Dayan tarango [facility] 02/23/2022 13:24:17 influenza, unspecified formulation 2 completed Dayan tarango [facility] 02/23/2022 13:24:28 Influenza, split virus, quadrivalent, preservative 8 completed Not Available [facility] 12/14/2021 18:03:00 SARS-COV-2 (COVID-19) vaccine, UNSPECIFIED 5 completed Kristy tarango, [facility] 04/04/2024 09:18:32 influenza, unspecified formulation 5 completed Kristy Worley null, [facility] 04/04/2024 09:18:40 Pneumococcal Conjugate, unspecified formulation 5 completed Kristy tarango, [facility] 04/04/2024 09:18:48 zoster, unspecified formulation 0 completed Not Available [facility] 12/14/2021 18:03:00 Tdap 0 completed Not Available [facility] 12/14/2021 18:03:00 zoster recombinant 1 completed Not Available [facility] 12/14/2021 18:03:00 Influenza, split virus, quadrivalent, preservative 0 completed Not Available [facility] 12/14/2021 18:03:00 COVID-19 vaccine, vector-nr, rS-ChAdOx1, PF, 0.5 mL 1 completed Not Available [facility] 12/14/2021 18:03:00 COVID-19 vaccine, vector-nr, rS-ChAdOx1, PF, 0.5 mL 1 completed Not Available [facility] 12/14/2021 18:03:00 Past Encounters Encounter ID Performer Location Encounter Start Date Encounter Closed Date Diagnosis/Indication Diagnosis SNOMED-CT Code Diagnosis ICD10 Code Diagnosis Note [id number] Issac Betancourt DO [facility] [address], [place] [address] 06/16/2017 16:14:20 06/16/2017 16:57:51 Essential hypertension 66244577 I10 stable at home but will watch carefully with Impaired f asting glycemia 484122965 R73.01 emabarking on wgt loss program eat better less carbs, walking increase Obstructiv e sleep apnea syndrome 98219465 G47.33 long discussion re symptoms [id number] Issac Betancourt [facility] Medicine [address],[place] [address] 09/21/2017 16:30:46 09/21/2017 16:58:32 Impaired fasting glycemia 573186062 R73.01 emabarking on wgt loss program eat better less carbs, walking increase continue with metformin but will lower dose due to bowels 750 bid Essential hypertension 33432020 I10 stable at home but will watch carefully with Hypotestosteronism 44369 99709 104 R79.89 will be checking testost level next month looking for a drop in levels to support testost replacemen t therapy [id number] Issac Betancourt [facility] Medicine [address],[place]aron Me[address]ia [facility] [place] [address] 10/26/2017 16:21:07 10/29/2017 08:54:35 Essential hypertension 36904572 I10 stable at home but will watch carefully with Hyperlipidemia 78826195 E78.5 will need to Impaired f asting glycemia 957093189 R73.01 emabarking on wgt loss program eat better less carbs, walking increase continue with metformin but will lower dose due to bowels 750 bid Hyperparathyroidism 6699 9008 E21.3 will need new endocrinol ogist, has not been seen in quite a while currently has not had new lab for this as of late l will get lab for endocrine befopre the appt Hypotestosteronism 60219 96962 104 R79.89 will be checking testost level next month looking for a drop in levels to support testost replacemen t therapy [id number] Issac Betancourt [facility] Medicine [address],[place] [address] 01/26/2018 16:04:18 01/26/2018 16:50:03 Hyperlipidemia 49603834 E78.5 will need to Essential hypertension 87999126 I10 stable at home but will watch carefully with Hyperparathyroidism 6699 9008 E21.3 will need new endocrinol ogist, has not been seen in quite a while currently has not had new lab for this as of late l will get lab for endocrine befopre the appt Hepatitis C screening 41 2120312 Z11.59 Type 2 surinder betes mellitus 73496963 E11.9 new onset as it has crept up on him and a1c is now 7.4 will increase metformin to 1000 bid but will be able to bring glucose down to normal with his wgt loss program and exercise and this will no longer be an issue again as in the past [id number] Issac Betancourt DO [facility] Medicine [address],[place] teresa Mejia [facility] [address] 03/21/2018 15:54:19 03/21/2018 16:41:05 Type 2 diabetes mellitus 78368556 E11.9 has done a great job and is feeling good careful with diet after discussion have increased metformin to 1000 bid but believe will be able to decrease down again soon but will be able to bring glucose down to normal with his wgt loss program and exercise and this will no longer be an issue again as in the past Essential hypertension 77861142 I10 stable at home but has been watching carefully with Hyperparathyroidism 6699 9008 E21.3 has new endocrinol ogist, has been seen continue to follow as noted in endocrine consult Issac Betancourt DO [facility] Medicine [address],[place] te[place] [address] 07/18/2018 16:00:59 07/19/2018 08:57:33 Type 2 diabetes mellitus 40680543 E11.9 has done a great job and is feeling good careful with diet after discussion have increased metformin to 1000 bid but believe will be able to decrease down again soon but will be able to bring glucose down to normal with his wgt loss program and exercise and this will no longer be an issue again as in the past Essential hypertension 51412924 I10 stable at home but has been watching carefully with ` Hyperparathyroidism 6699 9008 E21.3 has new endocrinol ogist, has been seen continue to follow as noted in endocrine consult Hepatitis C screening 41 0051555 Z11.59 Primary er ectile dysfunction 096289332 N52.9 [id number] Issac Betancourt DO [facility] Internal Medicine [address] [facility] [address],[place] [employer] [place] [address] 01/31/2019 16:07:17 01/31/2019 16:51:12 Essential hypertension 82739858 I10 stable at home but has been watching carefully with ` Type 2 surinder betes mellitus 78106690 E11.9 has done a great job and is feeling good careful with diet after discussion have increased metformin to 1000 bid but believe will be able to decrease down again at some point wgt loss program and exercise will continue Paronychia of toe 065366 002 L03.039 [id number] Issac Betancourt [facility] Medicine [address],[place] [address] 05/31/2019 16:13:25 05/31/2019 16:51:01 Type 2 diabetes mellitus 08279087 E11.9 has done a great job and is feeling good careful with diet after discussion is doing good on metformin 1000 mg BID with no problems A1c was 6.6, dropped from 7.1 Essential hypertension 40149723 I10 high today in office 160/90, most likely white coat but states it is stable at home will continue to monitor Osteoarthritis 641976208 M19.90 more so in the left hand in his PIP joints and also in his right thumb will prescribe diclofenac and see if insurance covers it [id number] Issac Betancourt [facility] Medicine [address],[place] [address] 10/02/2019 16:24:02 10/03/2019 10:01:00 Type 2 diabetes mellitus [id number] E11.9 A1C 6.9 stable with BID metformin Will continue to monitor Occasional diarrhea currently Essential hypertension 60141938 I10 BP well controlled with med Hyperlipidemia 87791052 E78.5 Doing great, no need for statin Osteoarthritis 030904936 M19.90 Diclofenac did not help and could not be used regularly Will switch to diclo 75 oral with food Testostero ne level below reference range [id number] R79.89 Feeling fatigued and low libido Need to recheck test [id number] Issac Betancourt [facility] Internal Medicine [address],[place] [address] 01/15/2020 16:08:50 01/15/2020 16:57:28 Type 2 diabetes mellitus 13712411 E11.9 A1C 7.0 stable with BID metformin 1000mg was 6.6 but has gained 5-7 lbs since may told to have him get on a better diet Will continue to monitor Occasional diarrhea currently Essential hypertension 09797226 I10 BP well controlled with med Hyperparathyroidism 6699 9008 E21.3 has new endocrinol ogist, has been seen continue to follow as noted in endocrine consult [id number] SAVITA MANNING [facility] Internal Medicine [address],[place] [address] 02/19/2020 13:45:15 02/19/2020 16:38:07 Diarrhea 47729557 R19.7 most likely a reaction from his metformin as this has happened in the past, probably happened due change in time he took it Type 2 surinder betes mellitus 67679051 E11.9 taking his medication as per patient [id number] Issac Betancourt DO [facility] Internal Medicine [address],[place] [address] 05/08/2020 16:06:14 05/10/2020 12:40:44 Type 2 diabetes mellitus 78147129 E11.9 A1C is 7.1 and was 7.0 las t check stable with BID metformin 1000mg was 6.6 but has gained 5-7 lbs since may told to have him get on a better diet Will continue to monitor Occasional diarrhea currently Essential hypertension 65384102 I10 BP well controlled with med Hyperparathyroidism 6699 9008 E21.3 has new endocrinol ogist, has been seen continue to follow as noted in endocrine consult Hepatitis C screening 41 9463819 Z11.59 Sprain of right wrist 11 [id number] 0518039 S63.501A [id number] Issac Betancourt DO [facility] Internal Medicine [address],[place] [address] 08/19/2020 16:06:33 08/19/2020 16:49:29 Type 2 diabetes mellitus 17304592 E11.9 A1C is 7.1 and was 7.0 las t check stable with BID metformin 1000mg was 6.6 but has gained 5-7 lbs since may told to have him get on a better diet Will continue to monitor Occasional diarrhea currently Essential hypertension 01141477 I10 BP is not well controlled with losart 25 wiil need to increase dose Hyperlipidemia 33640903 E78.5 Doing great, no need for statin Paronychia of toe of left foot due to ingrown toenail 532571109 L60.0 [id number] Issac Betancourt [facility] Internal Medicine [address] [facility] [address] [address] 01/06/2021 15:56:34 01/06/2021 16:42:20 Type 2 diabetes mellitus 89767415 E11.9 A1C is 7.8 and was 7.0 last check stable with BID metformin 1000mg was 6.6 but has gained 5-7 lbs since may told to have him get on a better diet Will continue to monitor for the next 3 months and see if he can cut the carbs down and substitute Hyperlipidemia 32953891 E78.5 Doing great, no need for statin Essential hypertension 53802813 I10 BP is not well controlled this time but he will check at home and let us know if he is still running high if so we will increase the losartan again Hyperparathyroidism 6699 9008 E21.3 has new endocrinol ogist, has been seen continue to follow as noted in endocrine consult [id number] Issac Betancourt DO [facility] Internal Medicine [address],[facility] [place] [address] 04/09/2021 11:44:13 04/09/2021 16:39:16 Essential hypertension 85751284 I10 BP is not well controlled this time but he will check at home and let us know if he is still running high if so we will increase the losartan again Type 2 surinder betes mellitus 60529725 E11.9 A1C is 6.3 and is doing good!!!!!! !!!!!!! it was 7.8 and was 7.0 last check stable with BID metformin 1000mg was 6.6 but has lost weight 15 lbs on a better diet Will continue to monitor for the next 3 months and see if he can cut the carbs down and substitute Hyperparathyroidism 6699 9008 E21.3 cont with new endocrinol ogist, has been seenno new treatments will be seen ing them in may Hyperlipidemia 90216661 E78.5 Doing great, no need for statin Osteoarthritis 716325717 M19.90 Diclofenac did not help and could not be used regularly Will switch to diclo 75 oral with food and seems to help alottold we will always need to be careful and monitor renal status etc [id number] Issac Betancourt DO [facility] Internal Medicine [address],[place] [address] 07/16/2021 16:06:45 07/18/2021 16:07:44 Type 2 diabetes mellitus 08011047 E11.9 A1C is 6.3 and is doing good!!!!!! !!!!!!! it was 7.8 and was 7.0 last check stable with BID metformin 1000mg was 6.6 but has lost weight 15 lbs on a better diet Will continue to monitor for the next 3 months and see if he can cut the carbs down and substitute Essential hypertension 02367370 I10 BP is not well controlled this time but he will check at home and let us know if he is still running high if so we will increase the losartan again Hyperparathyroidism 6699 9008 E21.3 cont with new endocrinol ogist, has been seenno new treatments will be seen ing them in may Hyperlipidemia 42153809 E78.5 Doing great, no need for statin LDL 118 HDL 38 [id number] Issac Betancourt DO [facility] Internal Medicine [address] [facility] [address],[place] Me[place]ia [facility] [place] [address] 11/07/2021 16:08:42 11/07/2021 16:47:57 Type 2 diabetes mellitus 83667307 E11.9 A1C is still 6.3 and was 6.3 and is doing good!!!!!! !!!!!!! it was 7.8 and was 7.0 last check stable with BID metformin 1000mg was 6.6 but has lost weight 15 lbs on a better diet Will continue to monitor for the next 3 months and see if he can cut the carbs down and substitute Essential hypertension 31329309 I10 BP is not well controlled this time but he will check at home and let us know if he is still running high if so we will increase the losartan again Hyperlipidemia 44106292 E78.5 Doing great, no need for statin LDL 118 HDL 38 Hand pain 66199432 M79.6 41 he will try stopping th statin for a week or two to see if this is causing an issuehe is very compliant with med but he has a bad arthritis issue with his hands Paronychia of toe of left foot [id number] 7432123 L03.032 he will be treated but will be seen by dr thomas [id number] SAVITA MANNING [facility] Internal Medicine [address],[place] D [facility] [place] [address] 12/16/2021 14:11:12 12/16/2021 15:00:51 Renewal of prescription 058297843 Z76.0 will refill diclofenac for patient Lumbago with sciatica 20 6479893 M54.41 Constipation 11919124 K5 9.09 [place] [id number] Issac Betancourt DO [facility] Internal Medicine [address], [place] [facility] [address] 02/20/2022 14:57:44 02/20/2022 16:01:07 Mass of left adrenal gland 5764838794 3337176 E27.8 currently not treat as it was a benign cyst Essential hypertension 08866593 I10 BP is not well controlled this time but he will check at home and let us know if he is still running high if so we will increase the losartan again Type 2 surinder betes mellitus 20870084 E11.9 A1C is now up to 8.3 and was 6.3 it was 7.8 and was 7.0 last check stable with BID metformin 1000mg Will continue to monitor for the next 3 months and see if he can cut the carbs down and substitute [id number] Issac Betancourt DO [facility] Internal Medicine [address],[place] [address] 05/06/2022 15:57:48 05/06/2022 16:53:19 Essential hypertension 13518858 I10 BP is not well controlled this time but he will check at home and let us know if he is still running high if so we will increase the losartan again Hyperparathyroidism 6699 9008 E21.3 cont with new endocrinol ogist, has been seenno new treatments will be seen ing them in may Type 2 surinder betes mellitus 83055476 E11.9 A1C is now down to 6.3 as he was up to 8.3 and was 6.3 Will continue to monitor for the next 3 months and see if he can cut the carbs down and substitute hopefully we will be able to get him off the metformin Hyperlipidemia 25664519 E78.5 Doing great, no need for statin LDL 118 HDL 38 [id number] Issac Betancourt DO [facility] Internal Medicine [address],[place] [address] 2022 15:58:15 2022 16:49:12 Hyperparathyroidism 50265790 E21.3 cont with new endocrinol ogist, has been seenno new treatments will be seen ing them in may Essential hypertension 83898531 I10 BP is not well controlled this time but he will check at home and let us know if he is still running high if so we will increase the losartan again Type 2 surinder betes mellitus 97994054 E11.9 A1C is now down to 5.6!!!!!!! he is down 20 lbs was 6.3 as he was up to 8.3 and was 6.3 Will continue to monitor for the next 3 months and see if he can cut the carbs down and substitute hopefully we will be able to get him off the metformin Hepatitis C screening 41 9574268 Z11.59 [id number] Issac Betancourt DO [facility] Internal Medicine [address],[facility] [place] [address] 11/24/2022 16:10:39 11/25/2022 08:08:20 Type 2 diabetes mellitus 07102156 E11.9 A1C is now down to 5.5 and 5.6!!!!!!! he is down 30 lbs was 6.3 as he was up to 8.3 and was 6.3 time for him to stop the metformin he will cut down on the metformin and then stop completely after a couple weekshe has gotten himself down to 165 lbs and feels great bc of the wgt program he is attending Hyperlipidemia 79840493 E78.5 Doing great, no need for statin LDL 118 HDL 38 [id number] Issac Betancourt DO [facility] [address], [place] [address] 02/23/2023 16:04:39 02/23/2023 16:46:49 Type 2 diabetes mellitus 78511071 E11.9 has been eating low carb and high fat mod prot going thru virta programhas been following and doing wellstates did not keep to diet this season Essential hypertension 46764474 I10 BP is not well controlled this time but he will check at home and let us know if he is still running high if so we will increase the losartan again Hyperlipidemia 24237361 E78.5 Doing great, LDL 118 HDL 38 Renewal of prescription 883005932 Z76.0 [id number] SAVITA MANNING [facility] [address] [facility] [address],[place] [address] 05/31/2023 11:29:11 05/31/2023 12:09:42 Tick bite 26540531 W57.XXXA will start on amox, has doxy allergy Essential hypertension 04504768 I10 BP is stable Hyperlipidemia 37284495 E78.2 needs standing orders for appt next week Type 2 surinder betes mellitus 17681945 E11.9 taking his medication as per patient [id number] Issac Betancourt DO [facility] Internal Medicine [address] [facility] [address],[place] [facility] [address] 06/08/2023 15:38:52 06/09/2023 09:45:22 Type 2 diabetes mellitus 31906379 E11.9 has been eating low carb and high fat mod prot going thru virta programhas been following and doing wellstates did not keep to diet this season Essential hypertension 01309686 I10 BP is not well controlled this time but he will check at home and let us know if he is still running high if so we will increase the losartan again Hyperlipidemia 90367932 E78.2 Doing great, LDL 118 HDL 38 Hyperparathyroidism 6699 9008 E21.3 cont with new endocrinol ogist, has been seenno new treatments will be seen ing them in may Erectile dysfunction 860 581794 F52.21 [id number] SAVITA MANNING Internal Medicine [address] [facility] [address],[place] [address] 08/27/2023 13:54:20 08/27/2023 14:46:44 Depression screening 191457017 Z13.31 0 Infection of toe 3405656 06 L08.9 start with keflexcont inue soaks Type 2 surinder betes mellitus 38458152 E11.9 taking his medication as per patient [id number] Issac Betancourt DO [facility] Internal Medicine [address] [facility] [address],[place] [address] 09/06/2023 15:37:12 09/06/2023 16:18:04 Type 2 diabetes mellitus 60320177 E11.9 has been eating low carb and high fat mod prot going thru virta programhas been following and doing wellstates did not keep to diet this season Hyperparathyroidism 6699 9008 E21.3 cont with new endocrinol ogist, has been seenno new treatments will be seen ing them in may Essential hypertension 01495640 I10 bp at home doing well will follow and if elevated will increase the carvedilol Mass of le ft adrenal gland 7401670841 4100371 E27.8 currently not treat as it was a benign cystbut will order a ct scan follow up in [id number] Issac Betancourt DO [facility] Internal Medicine [address],[place] [address] 12/13/2023 15:38:28 12/13/2023 16:37:15 Essential hypertension 43234546 I10 bp at home doing well will follow and if elevated will increase the carvedilol Hyperlipidemia 61137736 E78.2 Doing great, LDL 118 HDL 38 Type 2 surinder betes mellitus 63999943 E11.9 has been eating low carb and high fat mod prot going thru virta programs been following and doing wellstates did not keep to diet this season Hyperparathyroidism 6699 9008 E21.3 cont with new endocrinol ogist, has been seenno new treatments will be seen ing them in may Adult heal th examination 376242027 Z00.00 doing great Mass of le ft adrenal gland 6645261611 5700023 E27.8 currently not treat as it was a benign cystbut will order a ct scan follow up in [id number] SAVITA MANNING [facility] Internal Medicine [address] [facility] [address],[place] [address] 03/13/2024 10:23:59 03/13/2024 12:02:49 Pneumonia 498449402 J18.8 will start on prednisone , levo and cough syrup [id number] Issac Betancourt DO [facility] Internal Medicine [address] [facility] [address],[place] [address] 04/12/2024 15:54:44 04/12/2024 16:35:19 Essential hypertension 01776332 I10 bp at home doing well will follow and if elevated will increase the carvedilol Hyperlipidemia 31826311 E78.2 Doing great, LDL 68 HDL 40 Hyperparathyroidism 6699 9008 E21.3 cont with endocrinol ogist, has been seenno new treatments will be seen ing them in may Type 2 surinder barbara mellitus 49522512 E11.9 has been eating low carb and high fat mod prot going thru virta [employer] has been cheating during the holidays so a1c is up to 7.8 from 6.5 Mass of le ft adrenal gland 3760397968 2504398 E27.8 currently not treating was a benign cystbut will order a ct scan follow up in spring Health Concerns Section Related Observation LastModified by Organization Detai ls LastModified Time None Recorded Concern Status LastModified by Organization Details LastModified Time None Recorded Advance Directives Directive None Recorded Payers Encounter Date Sequence Insurance Name Policy Number Policy Chadwick Covered Member ID Chadwick Member ID Guarantor Name 08/27/2023 1 [facility] [id number] Lei VeriTran [id number] Lei VeriTran 09/06/2023 1 [facility] [id number] Lei [employer] [id number] Lei [employer] 12/13/2023 1 [facility] [id number] Lei [employer] [id number] Lei Kubasek 03/13/2024 1 [facility] [id number] Lei [employer] [id number] Lei Kubasek 04/12/2024 1 [facility] [id number] Lei Etopusk [id number] Lei Etopusk Notes Date Note Type Note Provider Name and Address Organization Details Recorded Time 4 text/htm l c/o infection of the toe infection of toe: the patient has an infection of the big R toe after cutting the nail too shortred, warm, inflamed, painful and creating purulent d/c will set up with abxcontinue soaks depression screen 0 needs lab work for his physical in a few weeksordered to our lab SAVITA MANNING [address] [place], [address], [facility] 08/27/2023 14:19:21 4 text/htm l Care Management - DiabetesReported bypatient.Self Care:seeing eye doctor yearly for dilated eye exam; checking feet regularly; normal range of home blood sugars (in the low 100s); no side effects from medications Associated Symptoms:symptoms are usually well controlled; no fatigue; no dizziness; no excessive sweating; no headaches; no confusion; no increased thirst; no increased appetite; no increased urination; no blurred vision; no numbness of feet; no calluses on feetCare Management - HypertensionReported bypatient.Self Care:not under emotional stress Severity:symptoms are improving; does not interfere with daily activities Associated Symptoms:no dizziness; no lightheadedness; no chest pain; no shortness of breath; no palpitations; no edema; no calf muscle cramps; no blurred vision; no confusion; no headaches; no fatigue here ruben polo is doing ok overall but his bp has been a little high as of late bps at home are good for the most part and he has been elevated here in office but good at home Issac Betancourt DO [address] [place] [address], [address], [facility] Internal Medicine 09/06/2023 16:14:10 4 text/htm l Care Management - DiabetesReported bypatient.Self Care:seeing eye doctor yearly for dilated eye exam; checking feet regularly; normal range of home blood sugars (in the low 100s); no side effects from medications Associated Symptoms:symptoms are usually well controlled; no fatigue; no dizziness; no excessive sweating; no headaches; no confusion; no increased thirst; no increased appetite; no increased urination; no blurred vision; no numbness of feet; no calluses on feetCare Management - HypertensionReported bypatient.Self Care:not under emotional stress Severity:symptoms are improving; does not interfere with daily activities Associated Symptoms:no dizziness; no lightheadedness; no chest pain; no shortness of breath; no palpitations; no edema; no calf muscle cramps; no blurred vision; no confusion; no headaches; no fatigue here for annual Issac Betancourt DO [address] [place], [address], [facility] Internal Medicine 12/13/2023 16:35:20 12/30/202 4 text/htm l c/o sick symptoms The patient is participating in this appointment via telemedicine communication with a phone call/video calling service ([employer])The patient consents to use of these platforms in place of an in-person appointment due to either sick symptoms the patient is presenting with or current office closure due to COVID exposure in order to keep our office staff and patients safe The patient presents to the office today with concerns of sick symptoms including sore throat, expiratory wheezing, chest congestion, dry cough denies fever, chills, ear pain The symptoms started originally over [facility] patient reports exposure to fam with sick contactsThe patient symptoms mainly involves the wheezing, chest congestion, cough Pertinent comorbidities include recent illness The patient symptoms are alleviated by restThe patient symptoms are exacerbated by activity The patient has tested for COVID-19 and the results was negative SAVITA MANNING [address] [place], [address], [facility] Internal Medicine 03/13/2024 11:38:23 5 text/htm l here for rechk andis doing ok overallhad a few bouts of bronchitisno cp no sobhome bps are in 140 /70 range has been up a bit a1c is up to 7.8 was 6.5 Issac Betancourt DO [address] [place], [address], [facility] Internal Medicine 04/12/2024 16:28:31
[2024-07-04 13:25] LABS: MANUAL DIFF FLAG NO
[2024-07-04 13:33] LABS: Basophils Absolute Auto 0.1 X10*3/uL (0.0-0.2); Basophils Percent Auto 0.9 % (0-2); Eosinophils Absolute Auto 0.4 X10*3/uL (0.0-0.4); Eosinophils Percent Auto 5.4 % (0-4); Hematocrit 47.1 % (42.0-52.0); Hemoglobin 15.5 g/dl (14.0-18.0); Imm Gran Abs Auto 0.02 X10*3/uL (0.00-0.03); Imm Gran Pct Auto 0.3 % (0.0-0.4); Lymphocytes Absolute Auto 2.2 X10*3/uL (1.2-4.9); Mean Corpuscular HGB Conc 32.9 g/dl (31.0-36.0); Mean Corpuscular Hemoglobin 29.8 pg (27.0-33.0); Mean Corpuscular Volume 90.4 fL (80.0-98.0); Mean Platelet Volume 11.1 fL (9.4-12.4); Monocytes Absolute Auto 0.7 X10*3/uL (0.1-1.2); Monocytes Percent Auto 9.6 % (2-11); Neutrophils Absolute Auto 3.5 x10*3/uL (2.0-8.3); Neutrophils Percent Auto 51.8 % (45-73); Platelet Count 274 X10*3/uL (160-400); Red Blood Count 5.21 X10*6/uL (4.60-5.80); White Blood Count 6.8 X10*3/uL (4.8-10.8)
[2024-07-04 13:43] LABS: Estimated Average Glucose 143 mg/dL; Hemoglobin A1C 195.5497 umol/L; Hemoglobin A1c % 6.6 % (<6.0); Total Hemoglobin (HGBA1C) 4042.2693 umol/L
[2024-07-04 14:06] LABS: Alanine Aminotransferase 44 U/L (0-40); Albumin Level 4.2 g/dL (3.5-5.0); Alkaline Phosphatase 72 U/L (39-117); Anion Gap 11 (12-20); Aspartate Amino Transferase 35 U/L (5-37); Bilirubin Total 0.5 mg/dL (0.0-1.0); Blood Urea Nitrogen 17 mg/dL (9-16); Calcium 9.4 mg/dL (8.4-10.2); Carbon Dioxide 22 mmol/L (22-29); Chloride 111 mmol/L (96-108); Cholesterol 132 mg/dL (<200); Estimated Glomerular Filt Rate > 60; Glucose Fasting 168 mg/dL (60-99); HDL Cholesterol 44 mg/dL (>40); LDL Cholesterol Calculated 67 mg/dL (<100); Potassium 3.9 mmol/L (3.3-5.1); Sodium 140 mmol/L (135-145); Total Protein 6.8 g/dL (6.5-8.0); Triglycerides 108 mg/dL (<150)
== END 2024-07-04 07:27 | disposition home or self-care (01) ==
LOC: HO.MANLDS 07:26
PROVIDERS: Visit Provider Physician Assistant
DX: E78.2 Mixed hyperlipidemia (principal); E11.9 Type 2 diabetes mellitus without complications
CPT/HCPCS: 36415; 80053; 80061; 83036; 85025

== ENCOUNTER 2024-10-17 07:44 | Outpatient (REF) | payer OTHER, SELFPAY ==
--- OUTSIDE RECORDS SUMMARY | 2024-10-17 07:46 | XMS_ITS | Continuity of Care Document ---
Author Organization [facility] Address [address] [facility] [facility] [address] [place] [address] Insurance Providers Payer Plan Claims Address Claims Phone Policy Number Group Number Relation Employer Guarantor Name Guarantor Guarantor Address Guarantor Phone RAMYA JENKINS [address], [place] [address] tel:[phone] Baudilio Gupta [address] [place] [address] Problems Unknown Problems Results Test Result Date/Time Value / Unit Interp. Refere nde Range fax.pdf LIPID PANEL, STANDARD[[id number]] Collected: 04/02/2022 04:20 PM Specimen Received: 04/02/2022 04:21 PM Source: [facility]ST[facility]:YESAN UPDATE OR CORRECTION HAS BEEN MADE TO NAMEFASTING: YES CHOLESTEROL, TOTAL [[id number]] 04/03/2022 07:21 AM 103 mg/dL N 200 mg/dL HDL CHOLESTEROL [[id number]] 04/03/2022 07:21 AM 34 mg/dL L > OR = 40 mg/dL TRIGLYCERIDES [[id number]] 04/03/2022 07:2 1 AM 111 mg/dL N 150 mg/dL LDL-CHOLESTEROL [[id number]] 04/03/2022 07:21 AM 50 mg/dL (calc) N Reference range: or = 2 CHD risk factors. LDL-C is now calculated using the Anurag calculation, which is a validated novel method providing better accuracy than the Friedewald equation in the estimation of LDL-C. Cornelius ALCOCER et al. JAMES. 2013;310(19): 5211-1988 (http://education.[employer].Taskmit/faq/JQF535) CHOL/HDLC RATIO [[id number]] 04/03/2022 07:21 AM 3.0 (calc) N 5.0 (calc) NON HDL CHOLESTEROL [[id number]] 04/03/2022 07:21 AM 69 mg/dL (calc) N 130 mg/dL (calc) For patients with diabetes p haseeb 1 major ASCVD risk factor, treating to a non-HDL-C goal of 100 mg/dL (LDL-C of <70 mg/dL) is considered a therapeutic option. ALBUMIN, RANDOM URINE W/CREA TININE[[id number]] Collected: 04/02/2022 04:20 PM Specimen Received: 04/02/2022 04:21 PM Source: [facility]ST[facility]:YESAN UPDATE OR CORRECTION HAS BEEN MADE TO NAMEFASTING: YES CREATININE, RANDOM URINE [[id number]] 04/03/2022 07:21 AM 157 mg/dL N 20-320 mg/dL ALBUMIN, URINE [[id number]] 04/03/2022 07: 21 AM 1.7 mg/dL N See Note: mg/dL Reference Range:Reference Ra ngeNot established ALBUMIN/CREATININE RATIO, RANDOM URINE [[id number]] 04/03/2022 07:21 AM 11 mcg/mg creat N 30 mcg/mg creat The ADA defines abnormalitie s in albuminexcretion as follows: Albuminuria Category Result (mcg/mg creatinine) Normal to Mildly increased OR = 300 The ADA recommends that at least two of threespecimens collected within a 3-6 month period beabnormal before considering a patient to bewithin a diagnostic category. COMPREHENSIVE METABOLIC PANE L[[id number]] Collected: 04/02/2022 04:20 PM Specimen Received: 04/02/2022 04:21 PM Source: [facility]ST[facility]:YESAN UPDATE OR CORRECTION HAS BEEN MADE TO NAMEFASTING: YES GLUCOSE [[id number]] 04/03/2022 07:21 AM 139 mg/dL H 65-99 mg/dL Fasting reference interval F or someone without known diabetes, a glucosevalue >125 mg/dL indicates that they may havediabetes and this should be confirmed with afollow-up test. UREA NITROGEN (BUN) [[id number]] 04/03/2022 07:21 AM 17 mg/dL N 7-25 mg/dL CREATININE [[id number]] 04/03/2022 07:21 AM 1.23 mg/dL N 0.70-1.35 mg/dL EGFR [[id number]] 04/03/2022 07:21 AM 66 mL/min/1.73m2 N > OR = 60 mL/min/1.73m2 The eGFR is based on the CKD -EPI 2020 equation. To calculate the new eGFR from a previous Creatinine or Cystatin Cresult, go to https://www.kidney.org/professionals/kdoqi/gfr%5Fcalculator BUN/CREATININE RATIO [[id number]] 04/03/2022 07:21 AM NOT APPLICABLE (calc) 6-22 (calc) SODIUM [[id number]] 04/03/2022 07:21 AM 137 mmol/L N 135-146 mmol/L POTASSIUM [[id number]] 04/03/2022 07:21 AM 4.9 mmol/L N 3.5-5.3 mmol/L CHLORIDE [[id number]] 04/03/2022 07:21 AM 105 mmol/L N 98-110 mmol/L CARBON DIOXIDE [[id number]] 04/03/2022 07: 21 AM 24 mmol/L N 20-32 mmol/L CALCIUM [[id number]] 04/03/2022 07:21 AM 10.6 mg/dL H 8.6-10.3 mg/dL PROTEIN, TOTAL [[id number]] 04/03/2022 07: 21 AM 6.6 g/dL N 6.1-8.1 g/dL ALBUMIN [[id number]] 04/03/2022 07:21 AM 4.2 g/dL N 3.6-5.1 g/dL GLOBULIN [[id number]] 04/03/2022 07:21 AM 2.4 g/dL (calc) N 1.9-3.7 g/dL (calc) ALBUMIN/GLOBULIN RATIO [[id number]] 04/03/2022 07:21 AM 1.8 (calc) N 1.0-2.5 (calc) BILIRUBIN, TOTAL [[id number]] 04/03/2022 07:21 AM 0.5 mg/dL N 0.2-1.2 mg/dL ALKALINE PHOSPHATASE [[id number]] 04/03/2022 07:21 AM 97 U/L N 35-144 U/L AST [[id number]] 04/03/2022 07:21 AM 14 U/L N 10-35 U/L ALT [[id number]] 04/03/2022 07:21 AM 16 U/L N 9-46 U/L HEMOGLOBIN A1c[[id number]] Collected: 04/02/2022 04:20 PM Specimen Received: 04/02/2022 04:21 PM Source: [facility]ST[facility]:YESAN UPDATE OR CORRECTION HAS BEEN MADE TO NAMEFASTING: YES HEMOGLOBIN A1c [[id number]] 04/03/2022 07: 21 AM 6.7 % of total Hgb H 5.7 % of total Hgb For someone without known di abetes, a hemoglobin N0lgodbx of 6.5% or greater indicates that they may have diabetes and this should be confirmed with a follow-up test. For someone with known diabetes, a value 7% indicates that their diabetes is well controlled and a value greater than or equal to 7% indicates suboptimal control. A1c targets should be individualized based on duration of diabetes, age, comorbid conditions, and other considerations. Currently, no consensus exists regarding use ofhemoglobin A1c for diagnosis of diabetes for children. Clinical PDF Report [id number] V-1[ClinicalPDFReport1] Collected: 04/02/2022 04:20 PM Specimen Received: 04/02/2022 04:21 PM Source: [facility]ST[facility]:YESAN UPDATE OR CORRECTION HAS BEEN MADE TO NAMEFASTING: YES Clinical PDF Report [id number] [ClinicalPDFReport1] PATTY Allergies, adverse reactions, alerts No known allergies and adverse reactions Medications No administered medications reported Vital Signs No vital signs reported Social History No smoking Hx information available
--- OUTSIDE RECORDS SUMMARY | 2024-10-17 07:46 | XMS_ITS | Encounter Summary ---
Author Organization [facility] Address [address] [place], [place] [address] [place] [address] Phone Care Team Providers Care Psychiatric Security Nurse Name Role Phone Issac Madden DO Primary Care Provider [phone] Encounter Details Date Type Department Care Team ([facility] st Contact Info) Description 10/03/2019 Transcribe Orders Virtual Department [address] [place] [address] Issac Madden DO [address] [facility] [place] [address] [place] [address] [email or web address] Bilateral hand pain (Primary Dx); Osteoarthritis, unspecified osteoarthritis type, unspecified site Social History Tobacco Use Types Packs/Day Years Used Date Smoking Tobacco: Never Smokeless Tobacco: Never Alcohol Use Standard Drinks/Week Comments Never 0 (1 standard drink = 0.6 oz pur e alcohol) Sex and Gender Information Value Date Recorded Sex Assigned at Male 08/09/2018 7:36 AM EDT Legal Sex Male 9:49 PM EDT Gender Identity Male 08/09/2018 7:36 AM EDT Sexual Orientation Straight 08/09/2018 7: 36 AM EDT documented as of this encounter Plan of Treatment Not on file documented as of this encounter Results * XR HAND 3 OR MORE VIEWS (BILATERAL) (05/07/2020 4:31 PM EST) Anatomical Region Laterality Modality Hand Left Computed Radiogr aphy 05/07/2020 4:43 PM EST Narrative 05/07/2020 4:56 PM EST TECHNIQUE: XR HAND 3 OR MORE VIEWS (BILATERAL) CLINICAL HISTORY: Wrist and hand joint pain and stiffness with worsening. FINDINGS: Bilateral hands: There is mild bilateral radiocarpal joint narrowing. Mild left first CMC arthrosis. Mild to moderate right and mild left left first MCP arthrosis with joint space narrowing and small lucent subchondral cystic changes. Mild degenerative narrowing and bony remodeling of bilateral thumb IP joints. Mild degenerative bony remodeling of second through fifth PIP and DIP joints mild bony hypertrophic changes and scattered small subchondral lucencies of bilateral index and long finger PIP joints and DIP joints. No evidence of bony resorptive changes. Suggestion of mild soft tissue edema of index through small finger PIP joints. No abnormal soft tissue calcifications. There are right thumb radiographs dated 11/08/2018 dated which demonstrates mild to moderate first MCP arthrosis without interval change on the current examination. CONCLUSION: Findings consistent with mild to moderate thumb MCP and IP joint and second through fifth digit PIP and DIP joint arthrosis. Procedure Note Bereket Cody MD - 05/07/2020 TECHNIQUE: XR HAND 3 OR MORE VIEWS (BILATERAL) CLINICAL HISTORY: Wrist and hand joint pain and stiffness withworsening. FINDINGS: Bilateral hands: There is mild bilateral radiocarpal joint narrowing. Mild left first CMC arthrosis. Mild to moderate right and mild left left first MCP arthrosis with jointspace narrowing and small lucent subchondral cystic changes. Milddegenerative narrowing and bony remodeling of bilateral thumb IP joints. Mild degenerative bony remodeling of second through fifth PIP and DIPjoints mild bony hypertrophic changes and scattered small subchondrallucencies of bilateral index and long finger PIP joints and DIP joints. No evidence of bony resorptive changes. Suggestion of mild soft tissue edema of index through small finger PIPjoints. No abnormal soft tissue calcifications. There are right thumb radiographs dated 11/08/2018 dated which demonstratesmild to moderate first MCP arthrosis without interval change on thecurrent examination. CONCLUSION: Findings consistent with mild to moderate thumb MCP and IP joint andsecond through fifth digit PIP and DIP joint arthrosis. us Issac A Bigda DO IMG XR UPPER EXTREMITY Final Res ult documented in this encounter Visit Diagnoses Diagnosis Bilateral hand pain- Primary Osteoarthritis, unspecified osteoarthritis type, unspecified site Bilateral hand pain Osteoarthritis, unspecified osteoarthritis type, unspecified site documented in this encounter Care Teams Psychiatric Security Nurse Relationship Specialty Start Date End Date Issac Madden DO [email or web address] PCP - General Internal Medicine 08/09/18 documented as of this encounter Additional Source Comments The information contained in this document represents components of the legal health record. It is not the complete legal health record.[facility]
[2024-10-17 13:28] LABS: MANUAL DIFF FLAG NO
[2024-10-17 13:43] LABS: Hematocrit 45.1 % (42.0-52.0); Hemoglobin 15.1 g/dl (14.0-18.0); Imm Gran Abs Auto 0.02 X10*3/uL (0.00-0.03); Imm Gran Pct Auto 0.3 % (0.0-0.4); Lymphocytes Absolute Auto 2.0 X10*3/uL (1.2-4.9); Mean Corpuscular HGB Conc 33.5 g/dl (31.0-36.0); Mean Corpuscular Hemoglobin 29.7 pg (27.0-33.0); Mean Corpuscular Volume 88.6 fL (80.0-98.0); NRBC Abs Auto 0.000 X10*3/uL (0.0-0.012); NRBC Pct Auto 0.0 /100WBC (0.0-0.2); Platelet Count 259 X10*3/uL (160-400); Red Blood Count 5.09 X10*6/uL (4.60-5.80); White Blood Count 6.5 X10*3/uL (4.8-10.8)
[2024-10-17 13:57] LABS: Alanine Aminotransferase 32 U/L (0-40); Albumin Level 4.4 g/dL (3.5-5.0); Alkaline Phosphatase 80 U/L (39-117); Anion Gap 13 (12-20); Aspartate Amino Transferase 27 U/L (5-37); Blood Urea Nitrogen 19 mg/dL (9-16); Calcium 9.7 mg/dL (8.4-10.2); Carbon Dioxide 23 mmol/L (22-29); Chloride 110 mmol/L (96-108); Cholesterol 140 mg/dL (<200); Estimated Glomerular Filt Rate > 60; HDL Cholesterol 44 mg/dL (>40); Potassium 4.5 mmol/L (3.3-5.1); Sodium 141 mmol/L (135-145); Total Protein 7.1 g/dL (6.5-8.0); Triglycerides 69 mg/dL (<150)
[2024-10-17 14:13] LABS: Hemoglobin A1C 198.9400 umol/L; Total Hemoglobin (HGBA1C) 3996.2399 umol/L
== END 2024-10-17 07:45 | disposition home or self-care (01) ==
LOC: HO.MANLDS 07:44
PROVIDERS: Visit Provider Physician Assistant
DX: E78.2 Mixed hyperlipidemia (principal); E11.9 Type 2 diabetes mellitus without complications
CPT/HCPCS: 36415; 80053; 80061; 83036; 85025

== ENCOUNTER 2025-01-24 07:33 | Outpatient (REF) | payer OTHER, SELFPAY ==
--- OUTSIDE RECORDS SUMMARY | 2025-01-24 07:37 | XMS_ITS | Encounter Summary ---
Author Organization [facility] Address [address] [place], [place] [address] [place] [address] Phone Care Team Providers Care Patient Transportation Driver Name Role Phone Issac Madden DO Primary Care Provider [phone] Encounter Details Date Type Department Care Team ([facility] st Contact Info) Description 10/03/2019 Transcribe Orders Virtual Department [address] [place] [address] Issac Madden DO [address] [facility] [place] [address] [place] [address] [email or web address] Bilateral hand pain (Primary Dx); Osteoarthritis, unspecified [...] site documented in this encounter Care Teams Patient Transportation Driver Relationship Specialty Start Date End Date Issac Madden DO [email or web address] PCP - General Internal Medicine 08/09/18 documented as of this encounter Additional Source Comments The information contained in this document represents components of the legal health record. It is not the complete legal health record.[facility]
--- OUTSIDE RECORDS SUMMARY | 2025-01-24 07:37 | XMS_ITS | Encounter Summary ---
Author Organization [facility] Address [address] [place] [address] Phone Care Team Providers Care Middleware Architect Name Role Phone Unknown, Unknown Primary Care Provider Issac Radford DO Unavailable Issac Madden DO Primary Care Provider [phone] Encounter Details Date Type Department Care Team (Latest Contact Info) Description 03/16/2018 Transcribe Orders [address] [address] Messi Hilario MD [address] [place] [phone] [email or web address] Hypercalcemia (Primary Dx); Diabetes mellitus, latent; Fatigue, unspecified type Social History Tobacco Use Types Packs/Day Years Used Date Smoking Tobacco: Never Assessed Sex and Gender Information Value Date Recorded Sex Assigned at Male 08/09/2018 7:36 AM EDT Legal Sex Male 9:49 PM EDT Gender Identity Male 08/09/2018 7:36 AM EDT Sexual Orientation Straight 08/09/2018 7: 36 AM EDT documented as of this encounter Plan of Treatment Not on file documented as of this encounter Results * FSH (03/16/2018 8:05 AM EST) FSH 6.7 IU/L [facility] Comment:MALE: 1.5-12.5 mIU/m L Blood 03/16/2018 8:05 AM EST 03/16/2018 8:12 AM EST Messi Hilario MD LAB BLOOD BKR ORDERABLES Fin al Result Performing Organization Address [facility] Co de Phone Number [address] [address] * LH (03/16/2018 8:05 AM EST) LH 6.0 IU/L [facility] Comment: Interpretation: MALE: 1.7 - 8.6 mIU/ml Blood 03/16/2018 8:05 AM EST 03/16/2018 8:12 AM EST Messi Hilario MD LAB BLOOD BKR ORDERABLES Fin al Result Performing Organization Address [facility] de Phone Number [address] [address] * Prolactin (03/16/2018 8:05 AM EST) PROLACTIN 8.8 4.0 - 15.2 ng/mL [facility] Blood 03/16/2018 8:05 AM EST 03/16/2018 8:12 AM EST Messi Hilario MD LAB BLOOD BKR ORDERABLES Fin al Result Performing Organization Address [place]/[facility] de Phone Number [address] [address] * Testosterone, total and free (03/16/2018 8:05 AM EST) FREE TESTOSTERONE 12.7 3.87 - 14.7 ng/dL [facility] Comment: (NOTE) ADDITIONAL INFORMATION Testing performed by [facility]. This test was developed and its performance characteristics determined by [facility] in a manner consistent with CLIA requirements. This test has not been cleared or approved by the U.S. Food and Drug Administration. TESTOSTERONE, TOTAL 438 240 - 950 ng/dL [facility] Comment: (NOTE) ADDITIONAL INFORMATION Testing performed by Liquid Chromatography-Tandem Mass Spectrometry (LC-MS/MS). This test was developed and its performance characteristics determined by [facility] in a manner consistent with CLIA requirements. This test has not been cleared or approved by the U.S. Food and Drug Administration. Blood 03/16/2018 8:05 AM EST 03/16/2018 8:12 AM EST us Messi Hilario MD LAB BLOOD BKR ORDERABLES Fin al Result [facility] [address] [place] [address] * (ABNORMAL) CBC and differential (03/16/2018 8:05 AM EST) WBC 7.26 3.40 - 11.20 K/uL [facility] RBC 5.31 4.50 - 5.50 M/uL [facility] HGB 15.7 13.0 - 17.0 g/dL [facility] HCT 46.7 40.0 - 51.0 % [facility] PLT 251 130 - 400 K/uL [facility] MCV 87.9 79.0 - 98.0 fL [facility] MCH 29.6 27.0 - 34.8 pg [facility] MCHC 33.6 31.5 - 36.0 g/dL [facility] RDW 12.7 10.8 - 14.6 % [facility] MPV 11.0 9.4 - 12.4 fl [facility] NRBC 0.00 0.00 /100 WBCs [facility] ABSOLUTE NRBC 0.00 0.00 K/uL [facility] DIFF METHOD Auto [facility] NEUTS 55.4 45.30 - 77.70 % [facility] LYMPHS 28.8 12.30 - 39.70 % [facility] MONOS 10.2 4.10 - 12.80 % [facility] EOS 4.0 0 - 7.2 % [facility] BASOS 1.0 0 - 2.80 % [facility] Granulocytes, immature (%) 0.6 0.0 - 0.9 % [facility] ABSOLUTE NEUTS 4.03 1.40 - 7.70 K/uL [facility] ABSOLUTE LYMPHS 2.09 0.60 - 3.20 K/uL [facility] ABSOLUTE MONOS 0.74(H) 0.11 - 0.59 K/uL [facility] ABSOLUTE EOS 0.29 0.01 - 0.50 K/uL [facility] ABSOLUTE BASOS 0.07 0.00 - 0.08 K/uL [facility] Granulocytes, immature 0.04 0.00 - 0.05 K/uL [facility] Blood 03/16/2018 8:05 AM EST 03/16/2018 8:12 AM EST Messi Hilario MD LAB BLOOD BKR ORDERABLES Fin al Result Performing Organization Address City/[facility]/ZIP Co de Phone Number [address] [address] * (ABNORMAL) TSH (03/16/2018 8:05 AM EST) TSH 4.32(H) 0.27 - 4.20 uIU/mL [facility] Blood 03/16/2018 8:05 AM EST 03/16/2018 8:12 AM EST us Messi Hilario MD LAB BLOOD BKR ORDERABLES Fin al Result Performing Organization Address [facility]/ZIP Co de Phone Number [address] [address] * Lipid panel (03/16/2018 8:05 AM EST) HDL 43 mg/dL [facility] Comment: Interpretation <40 mg/dL: Low HDL cholesterol (major risk factor for CHD) Greater than or equal to 60 mg/dL: High HDL cholesterol ( negative risk factor for CHD) HDL - cholesterol is affected by a number of factors, e.g. smoking, excerise, hormones, sex and age. CHOLESTEROL 183 0 - 240 mg/dL [facility] TRIGLYCERIDES 130 30 - 160 mg/dL [facility] LDL 114 50 - 129 mg/dL [facility] Comment: LDL levels in terms of risk for coronary heart disease: <100 mg/dL: Optimal 100-129 mg/dL: Near or above optimal 130-159 mg/dL: Borderline high 160-189 mg/dL: High >190 mg/dL: Very High CARDIAC RISK RATIO 4.3 3.4 - 5.0 C [facility] Blood 03/16/2018 8:05 AM EST 03/16/2018 8:12 AM EST Messi Hilario MD LAB BLOOD BKR ORDERABLES Fin al Result Performing Organization Address [facility] Co de Phone Number [address] [address] * (ABNORMAL) Hemoglobin A1c (03/16/2018 8:05 AM EST) HEMOGLOBIN A1C 7.1(H) 4.3 - 5.8 % [facility] Blood 03/16/2018 8:05 AM EST 03/16/2018 8:12 AM EST Messi Hilario MD LAB BLOOD BKR ORDERABLES Fin al Result Performing Organization Address [facility] Co de Phone Number [address] [address] documented in this encounter Visit Diagnoses Diagnosis Hypercalcemia- Primary Diabetes mellitus, latent Secondary diabetes mellitus without mention of complication, not stated as uncontrolled, or unspecified Fatigue, unspecified type documented in this encounter Care Teams Middleware Architect Relationship Specialty Start Date End Date Unknown, Unknown, MD PCP - General 03/16/18 08/08/18 Issac Madden DO [address] [place] [address] [email or web address] PCP - General Internal Medicine 08/09/18 Issac Madden DO [address] [place] [address] [email or web address] Insurance Assigned Provider 07/16/18 05/19/19 documented as of this encounter Additional Source Comments The information contained in this document represents components of the legal health record. It is not the complete legal health record.[facility]
--- OUTSIDE RECORDS SUMMARY | 2025-01-24 07:37 | XMS_ITS | Clinical Summary ---
Author Organization [facility] Address [address] [place] [id number] Phone Care Team Providers Care Zipper Machine Operator Name Role Phone Lidia Betancourt Primary Care Provider [phone] Allergies Active Allergy Reactions Criticality Noted Date Comments Doxycycline Rash Low 08/22/2020 Lisinopril Nausea Only 08/22/2020 Medications losartan (COZAAR) 25 MG tablet Take 50 mg by mouth daily. Active metFORMIN (GLUCOPHAGE) 500 MG tablet Take 1,000 mg by mouth 2 (two) times a day with meals. Active diclofenac sodium (VOLTAREN) 75 MG EC tablet Take 75 mg by mouth 2 (two) times a day. Active ciclopirox (PENLAC) 8 % solutionIndicati ons:onychomycosi s due to dermatophyte Apply topically nightly at bedtime. Apply over nail daily over previous coat. After seven (7) days, may remove with nail belarusian remover and continue cycle. Indications: a fungal disease of the nails called dermatophyte onychomycosis 6.6 mL 3 08/23/19 21 Active Additional Information Patient not taking.Reported on 05/16/2021 sildenafiL (VIAGRA) 50 mg tablet 01/10/20 21 Active Immunizations Immunization Administration Dates Next Due Tdap 08/09/2018(Deferred: - This nurse discharged pt before I saw orders for tetanus shot.) Social History Tobacco Use Types Packs/Day Years Used Date Smoking Tobacco: Former Cigarettes Q uit: 1979 Smokeless Tobacco: Never Alcohol Use Standard Drinks/Week Comments Yes 2 (1 standard drink = 0.6 oz pur e alcohol) Education Answer Date Recorded Are you interested in more education? Not on ambreen e 07/10/2022 Are you concerned about learning? Not on file 07/10/2022 No 07/10/2022 No 07/10/2022 Digital Access Answer Date Recorded No 08/08/2022 No 08/08/2022 Reliable internet access at home? Not on file 08/08/2022 Device with a working camera? Not on file Sex and Gender Information Value Date Recorded Sex Assigned at Male 08/09/2018 7:36 AM EDT Legal Sex Male 9:49 PM EDT Gender Identity Male 08/09/2018 7:36 AM EDT Sexual Orientation Straight 08/09/2018 7: 36 AM EDT Last Filed Vital Signs Vital Sign Reading Time Taken Comments Blood Pressure 189/95 12/14/2021 12:01 PM EDT Pulse 61 12/14/2021 12:01 PM EDT Temperature 36.6 C (97.9 F) 12/14/2021 10:56 AM EDT Respiratory Rate 16 12/14/2021 12:01 PM EDT Oxygen Saturation 98% 12/14/2021 12:01 PM EDT Inhaled Oxygen Concentration - - Weight 86.2 kg (190 lb) 12/14/2021 10:56 AM EDT Height 167.6 cm (5' 6 ) 12/14/2021 10:56 AM EDT Body Mass Index 30.67 12/14/2021 10:56 AM EDT Plan of Treatment Health Maintenance Due Date Last Done Comments BLOOD PRESSURE 1960 DEPRESSION SCREENING 1971 SMOKING Hx and SMOKELESS TOBACCO SCREENING 08/11/1972 HEPATITIS C SCREENING 08/11/1977 HIV ONE-TIME SCREENING (18-65 YEARS) 08/11/1977 COLOGUARD 08/11/2004 FIT TEST 08/11/2004 FOBT 08/11/2004 SIGMOIDOSCOPY 08/11/2004 VIRTUAL COLONOSCOPY 08/11/2004 DIABETIC EYE EXAM 11/12/2023 ABDOMINAL AORTIC ANEURYSM (AAA) SCREENING 08/11/2024 HEMOGLOBIN A1C 10/08/2024 04/10/2024, 08, 01/27/2019, Additional history exists INFLUENZA VACCINE (#1) 2024 , 04/20/2019, 01/31/2018 COVID-19 VACCINE (3 - season) 2024 07/13/2020, 07/13/2020, 06/22/2020, Additional history exists PNEUMOCOCCAL VACCINES (50+ years) (3 of 3 - PCV20 or PCV21) 02/23/2025 02/24/2020, 02/24/2020 CREATININE LEVEL 04/10/2025 04/10/2024, 03/16/2018 LIPID PANEL 04/10/2025 04/10/2024, 08/3 , 01/27/2019, Additional history exists POTASSIUM LEVEL 04/10/2025 04/10/2024, 03/16/2018 Adult Td,Tdap Booster 02/23/2030 02/24/2020, 016 COLONOSCOPY 01/27/2031 01/27/2021 COLORECTAL CANCER SCREENING 01/27/2031 RSV VACCINE (1 - 1-dose 75+ series) 08/11/2034 ZOSTER VACCINES Completed 04/25/2020, 02/24/2020 HEPATITIS A VACCINES Aged Out No long er eligible based on patient's age to complete this topic HIB VACCINES Aged Out No longer eligi ble based on patient's age to complete this topic IPV VACCINES Aged Out No longer eligi ble based on patient's age to complete this topic MENINGOCOCCAL VACCINES (ACWY) Aged Out No longer eligible based on patient's age to complete this topic MENINGOCOCCAL VACCINES (B) Aged Out N o longer eligible based on patient's age to complete this topic Medical Devices Not on file Procedures Procedure Name Priority Date/Time Associated Diagnosis Comments HEMOGLOBIN A1C Routine 04/10/2024 8:17 AM EST Type 2 diabetes mellitus without complication, unspecified whether terminal operations manager insulin use LIPID PANEL Routine 04/10/2024 8:17 AM EST Type 2 diabetes mellitus without complication, unspecified whether terminal operations manager insulin use COMPREHENSIVE METABOLIC PANEL (CMP) Routine 04/10/2024 8:17 AM EST Type 2 diabetes mellitus without complication, unspecified whether terminal operations manager insulin use ENDOSCOPY, COLON 01/27/2021 9:10 AM EST from Last 3 Months or Most Recently Relevant to Health Maintenance Results * (ABNORMAL) Comprehensive metabolic panel (04/10/2024 8:17 AM EST) SODIUM 138 133 - 146 mmol/L [facility] POTASSIUM 5.0 3.3 - 5.1 mmol/L [facility] CHLORIDE 107 96 - 108 mmol/L [facility] CO2 25 21 - 35 mmol/L [facility] BUN 18 6 - 19 mg/dL [facility] CREATININE 1.20 0.5 - 1.5 mg/dL [facility] GLUCOSE 187(H) 70 - 99 mg/dL [facility] ALBUMIN 3.8(L) 3.9 - 4.8 g/dL [facility] TOTAL PROTEIN 6.5 6.5 - 8.0 g/dL [facility] CALCIUM 9.7 8.4 - 10.3 mg/dL [facility] ALKALINE PHOSPHATASE 83 39 - 117 U/L [facility] TOTAL BILIRUBIN 0.4 0.0 - 1.2 mg/dL [facility] AST 23 0 - 37 U/L [facility] ALT 24 0 - 40 U/L [facility] GLOBULIN 2.7 1 - 4.8 g/dL [facility] EGFR 68 >59 mL/min/1.7 3m2 [facility] Comment:Estimated glomerular filtration rate calculated using the CKD-EPI refit equation. ANION GAP 11 10 - 20 mmol/L [facility] Blood 04/10/2024 8:17 AM EST 04/10/2024 8:20 AM EST us Lidia Betancourt DO LAB BLOOD BKR ORDERABLES Final R esult [facility] [address] [place] [address] * (ABNORMAL) Hemoglobin A1c (04/10/2024 8:17 AM EST) HEMOGLOBIN A1C 7.8(H) 4.3 - 5.8 % [facility] Blood 04/10/2024 8:17 AM EST 04/10/2024 8:20 AM EST us Lidia A Bigda DO LAB BLOOD BKR ORDERABLES Final R esult Performing Organization Address [facility] de Phone Number [address] [address] * (ABNORMAL) Lipid panel (04/10/2024 8:17 AM EST) HDL 45 mg/dL [facility] Comment: Interpretation <40 mg/dL: Low HDL cholesterol (major risk factor for CHD) Greater than or equal to 60 mg/dL: High HDL cholesterol ( negative risk factor for CHD) HDL - cholesterol is affected by a number of factors, e.g. smoking, excerise, hormones, sex and age. CHOLESTEROL 127 0 - 240 mg/dL [facility] TRIGLYCERIDES 70 30 - 160 mg/dL [facility] LDL 68 50 - 129 mg/dL [facility] Comment: LDL levels in terms of risk for coronary heart disease: <100 mg/dL: Optimal 100-129 mg/dL: Near or above optimal 130-159 mg/dL: Borderline high 160-189 mg/dL: High >190 mg/dL: Very High CARDIAC RISK RATIO 2.8(L) 3.4 - 5.0 [facility] Blood 04/10/2024 8:17 AM EST 04/10/2024 8:20 AM EST us Ldiia A Bigda DO LAB BLOOD BKR ORDERABLES Final R ult Performing Organization Address [facility] Co de Phone Number [address] [address] * ENDOSCOPY, COLON (01/27/2021 9:10 AM EST) Narrative Transcriptions Josi Rouse MD - 01/27/2021 9:10 AM EST Patient Name: Lei Gupta Attending MD:: JOSI ROUSE MD Procedure Date: 01/27/2021 9:10 AM Date of : 1960 Age: 60 Admit Type: Outpatient Gender: Male Room: [facility] 05 Referring MD: LIDIA BETANCOURT DO Exam Type: Colonoscopy Indications: Screening for colorectal malignant neoplasm, Last colonoscopy: October 2010 Medications: Monitored Anesthesia Care Procedure: Informed consent was obtained from the patient after discussion of the indications, limitations, alternatives, benefits, and risks of the procedure. Risks specifically discussed include but are not limited to medication reactions, missed lesions, bleeding, perforation, or the need for emergentsurgery. Throughout the procedure, the patient's bloodpressure, pulse, end-tidal CO2, and oxygen saturations were monitored continuously. The Olympus adult variable colonoscope [id number] #7was introduced through the anus and advanced to the terminal ileum, with identification of theappendiceal orifice and IC valve. The colonoscopy was performed without difficulty. The patient tolerated theprocedure well. The quality of the bowel preparation wasgood. Complications: No immediate complications. Estimated blood loss:None. Findings: The perianal and digital rectal examinations were normal. Pertinent negatives include normal sphincter tone. Retroflexion in the right colon was performed. Non-bleeding hemorrhoids were found during retroflexion. The hemorrhoids were moderate. The exam was otherwise without abnormality on direct and retroflexion views. The terminal ileum appeared normal. Impression: - Non-bleeding hemorrhoids. - The examination was otherwise normal on direct and retroflexion views. - The examined portion of the ileum was normal. - No specimens collected. Recommendation: - Continue present medications. - Repeat colonoscopy in 10 years for screeningpurposes. JOSI ROUSE MD 01/27/2021 9:27:04 AM This report has been signed electronically. Number of Addenda: 0 Note Initiated On: 01/27/2021 9:10 AM Procedure Code(s): --- Professional --- 12779, Colonoscopy, flexible; diagnostic, including collection of specimen(s) by brushing or washing, when performed (separateprocedure) --- Technical --- 74834, Colonoscopy, flexible; diagnostic, including collection of specimen(s) by brushing or washing, when performed (separateprocedure) Diagnosis Code(s): --- Professional --- Z12.11, Encounter for screening for malignantneoplasm of colon --- Technical --- Z12.11, Encounter for screening for malignantneoplasm of colon CPT copyright 2018 [employer]. All rights reserved. The codes documented in this report are preliminary and upon regional administrative assistant reviewmay be revised to meet current compliance requirements. Procedure Date: 01/27/2021 9:10:48 AM [address] [place] [address] us Lidia Betancourt DO GI PROCEDURE ORDERABLES Final Re sult from Last 3 Months or Most Recently Relevant to Health Maintenance Insurance [employer] PPO Care Teams Zipper Machine Operator Relationship Specialty Start Date End Date Lidia Betancourt DO [email or web address] PCP - General Internal Medicine 08/09/18 Additional Source Comments The information contained in this document represents components of the legal health record. It is not the complete legal health record.[facility]
--- OUTSIDE RECORDS SUMMARY | 2025-01-24 07:37 | XMS_ITS | Data Portability ---
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) MDM MODERATE MUST MEET 2 OUT OF [...] EACH ELEMENT THAT IS COVERED Not available 07/10/2024 16:38:45 10/23/2024 10/23/2024 [id number] [place] [id number] (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 Procedures None recorded. Surgeries None recorded. Imaging CT, heart, w/o contrast, w/ coronary calcium score [address] [facility], [address] [place], [address], 12/29/2023 08:17:40 Medication Orders prednison e 10 mg tablet 2023 025 [facility], [address] [place], [address], 10/23/2024 15:59:54 levofloxa ministerio 500 mg tablet 2023 025 [facility]2024, [address] [place], [address], 04/12/2024 16:02:32 codeine 10 mg-guaife nesin 100 mg/5 mL oral liquid 2023 025 [facility]5, [address] [place], [address], 04/12/2024 16:02:39 Patient TargetsNo targets recorded. Patient Instructions Encounter Date Encounter Id Patient Instructions Last Modified By Organization Details Last Modified Time 12/13/2023 [id number] hyperparathyroid i sm: care instructions Not available 12/13/2023 16:34:30 parathyroidectom y : before your surgery Not available 12/13/2023 16:34:30 04/12/2024 [id number] hyperparathyroid i sm: care instructions Not available 04/12/2024 16:26:55 parathyroidectom y : before your surgery Not available 04/12/2024 16:26:55 high blood pressure: care instructions Not available 04/12/2024 16:26:55 learning about high blood pressure Not available 04/12/2024 16:26:55 high cholesterol : care instructions Not available 04/12/2024 16:26:55 Reason for Referral None Reported. Results Created Date Observation Date Name Description Value Unit Range Abnormal Flag Note LastModifiedBy Organization Detail LastModifiedTime 01/13/20 24 01/13/2024 CT, heart , w/o contr ast, w/ coron celestine calci um score No observ ation record ed. [email or web address] [facility] [address] [facility] [address], [place], [address], 01/17/2024 09:22:30 Result Notes None recorded. Problems Name Problem SNOMED Code Status Onset Date Resolution Date Notes Provider Name and Address Organization Details Recorded Time Hyperlip idemia 54225100 Active 2017 [facility] with [facility] Impaired fasting glycemia 020855157 Completed 201701/26/2018 Issac Betancourt, DO [address] [facility], [place], [address], [facility] 8 16:36:31 Hyperpar athyroid ism 85970113 Active 2017 [facility] 10:[facility]:24 Pancreat itis 45769184 Active 2017 [facility]olved [facility] 10:07:24 [facility] hyperten jen 26268070 Active 2017 [facility] 10:07:24 Type 2 diabetes mellitus 52000006 Active 2017 [facility] 4 10:06:39 COVID-19 065712262 Active 2021 [facility] 10:07:35 Hand pain 03375313 Active 2021 [facility] 10:07:35 Hand pain 79009057 Active 2021 Kristycharleen Worley [facility] 4 10:07:35 Paronych ia of toe of left foot 8722373874 9576929 Active 2021 [facility] 10:07:35 Lumbago with sciatica 211468769 Active 2021 [facility] 10:07:24 Constipa tion 12146072 Active 2021 [facility] 10:07:35 Lumbar radiculo mayte 311497085 Active 2021 [facility] 10:07:24 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 7651217730 19790 Active 2021 Kristy tarango, [facility] 4 10:07:24 Mass of left adrenal gland 4858787151 9044421 Active 2021 Kristy Worley null, [facility] 4 10:07:24 Spinal stenosis of lumbar region 21454031 Active 2021 Kristy Worley null, [facility] 4 10:07:24 Sinus tachycar surinder 21693393 Active 2021 Not Available [facility] 3 09:31:20 Ingrowin g toenail 688541869 Active 2022 Kristy Worley null, [facility] 4 10:07:35 Streptoc occal sore throat 45109681 Active 2023 Kristy Worley null, [facility] 4 10:07:35 Erectile dysfunct ion 836206261 Active 2023 Kristycharleen Worley [facility], [facility] 4 10:07:24 Infectio n of toe 487645734 Active 2023 Kristycharleen tarango, [facility] 4 10:07:35 Cough 07953352 Active 2023 Issac Betancourt DO [address] [place] [address], [address], [facility] 4 11:23:49 Pneumoni a 752916908 Active 2023 SAVITA MANNING [address] [place] [address], [address], [facility] 4 11:31:40 Problem Notes None recorded. Procedures Surgical History Date Name Laterality Status Provider Name and Address Organization Details Recorded Time 4 Removal of Foreign Body completed SAVITA MANNING [address] [place] [address], [phone], [facility] 05/31/2023 12:02:13 Imaging Results None recorded. Procedure Notes None recorded. Medical Equipment None Reported. Allergies Allergen ID Allergen Name Allergen Category Reaction Reaction Severity Criticality Documentation Date Start Date Code Code System Note Provider Name and Address Organization Details Recorded Time 93 lisinopri l medicatio n nausea Not available Not available 05/12/2017 07324 RxNorm [facility] 8 16:19:55 94 doxycycli ne Not available rash Not available Not available 05/12/2017 3640 RxNorm Nancy Igel sukhdeep, [facility] 8 16:20:19 Medications Name Sig Start Date Stop Date Status Note LastModified by Organization Details LastModified Time losartan 50 mg tablet TAKE 1 TABLET BY MOUTH EVERY DAY FOR 30 DAYS 07/16 completed Not Available Not Available Not Available amoxicillin 500 mg capsule TAKE 2 CAPSULES BY MOUTH RIGHT AWAY, THEN 1 TABLET THREE TIMES A DAY UNTIL FINISHED 10/23 completed Not Available Not Available Not Available metformin 500 mg tablet 1 tab bid 09/21 completed Not Available Not Available Not Available prednisone 10 mg tablet 40 mg x 3 days30 mg x 3 days20 mg x 3 days10 mg x 3 days 10/23 completed Not Available Not Available Not Available albuterol sulfate 2.5 mg/3 mL (0.083 %) solution for nebulizatio n prn 08/19 completed Not Available Not Available Not Available sildenafil 50 mg tablet TAKE 1 TABLET BY MOUTH as needed 10/23 completed Not Available Not Available Not Available azithromyci n 250 mg tablet TAKE 2 TABLETS TODAY THEN 1 TABLET DAILY FOR THE FOLLOWING 4 DAYS 10/23 completed Not Available Not Available Not Available [...] Not Available Not Available Not Avai lable prednisone 20 mg tablet 06/16 completed Not Available Not Available Not Available sulfamethox azole 800 mg-trimetho prim 160 mg tablet 01/31 completed Not Available Not Available Not Available carvedilol 3.125 mg tablet TAKE 1 TABLET BY MOUTH TWICE A DAY 2024 active Not Available Not Available Not Avai lable ciclopirox 8 % topical solution 01/06 completed [...] A DAY WITH MEALS FOR 30 DAYS 10/23 completed Not Available Not Available Not Available codeine 10 mg-guaifene sin 100 mg/5 [...] Not Available levofloxaci n 500 mg tablet Take 1 tablet every 24 hours by oral route for 7 days. 04/12 completed Not Available Not Available Not Available levofloxaci n 750 mg tablet 06/16 completed Not Available Not Available Not Available losartan 100 mg tablet TAKE 1 TABLET BY MOUTH EVERY DAY active Not Available Not Available No t Available oxycodone 5 mg tablet TAKE 2 TABLET [...] completed Not Available Not Available Not Available chlorhexidi ne gluconate 0.12 % mouthwash RINSE ONE CAPSULE TWICE A DAY DIRECTED. SPIT OUT DO NOT SWALLOW 10/23 completed Not Available Not Available Not Available ProAir HFA 90 mcg/actuati on aerosol inhaler prn 10/23 completed Not Available Not Available Not Available oxycodone [...] in Arterial blood by Pulse oximetry Systolic And Diastolic Provider Name and Address Organization Details Last Updated DateTime 5 165.74 cm 33 kg/m2 53511.4 7 g 86 /min 96 % 96 % 160/80 mm[Hg] Sapna Martin [facility] 5 16:03:50 Date Recorded Body height Body mass index (BMI) Body weight Oxygen saturation Oxygen saturation in Arterial blood by Pulse oximetry Heart rate Systolic And Diastolic Provider Name and Address Organization Details Last Updated DateTime 5 165.74 cm 33 kg/m2 65597.4 7 g 99 % 99 % 97 /min 140/80 mm[Hg] Sapna Martin [facility] 5 16:19:45 Date Recorded Body height Body mass index (BMI) Body weight Oxygen saturation Oxygen saturation in Arterial blood by Pulse oximetry Heart rate Systolic And Diastolic Provider Name and Address Organization Details Last Updated DateTime 5 165.74 cm 30.7 kg/m2 78660.9 g 97 % 97 % 83 /min 158/84 mm[Hg] Ne Hendrickson [facility] 5 16:03:26 Date Recorded Body height Body mass index (BMI) Body weight Heart rate Oxygen saturation Oxygen saturation in Arterial blood by Pulse oximetry Systolic And Diastolic Provider Name and Address Organization Details Last Updated DateTime 4 165.74 cm 31 kg/m2 23928.3 7 g 90 /min 95 % 95 % 144/82 mm[Hg] Sapna Martin [facility] 4 16:16:06 Social History Question Answer Notes LastModified by Organizat ion Details LastModified Time Tobacco Smoking Status Former Smoker Sandhya tarango [facility] 06/16/2017 16:23:36 What Was The Date Of Your Most Recent Tobacco Screening? 10/23/2024 [email or web address] Information not available 10/23/2024 Sex: Unknown Functional Status Question Answer Note LastModified by Organization D etails LastModified Time Do you or have you ever used any other forms of tobacco or nicotine? No [email or web address] Information not available 02/23/2023 Mental Status None recorded. Family History Nothing Reported. Medical History No medical history recorded. Immunizations Vaccine Type Date Status Note Provider Nam e and Address Organization Details Recorded Time pneumococcal polysaccharide PPV23 0 completed Not Available [facility] 12/14/2021 18:03:00 COVID-19, mRNA, LNP-S, bivalent, PF, 50 mcg/0.5 mL or 25mcg/0.25 mL dose 2 completed Dayan tarango [facility] 02/23/2022 13:24:17 influenza, unspecified formulation 2 completed Dayan tarango [facility] 02/23/2022 13:24:28 Influenza, split virus, quadrivalent, preservative 8 completed Not Available [facility] 12/14/2021 18:03:00 SARS-COV-2 (COVID-19) vaccine, UNSPECIFIED 5 completed Kristy tarango [facility] 04/04/2024 09:18:32 influenza, unspecified formulation 5 completed Kristy tarango [facility] 04/04/2024 09:18:40 Pneumococcal Conjugate, unspecified formulation 5 [facility] 04/04/2024 09:18:48 zoster, unspecified formulation 0 completed Not Available [facility] 12/14/2021 18:03:00 Tdap 0 completed Not Available [facility] 12/14/2021 18:03:00 zoster recombinant 1 completed Not Available [facility] 12/14/2021 18:03:00 Influenza, split virus, quadrivalent, preservative 0 completed Not Available [facility] 12/14/2021 18:03:00 COVID-19 vaccine, vector-nr, rS-ChAdOx1, PF, 0.5 mL 1 completed Not Available [facility] 12/14/2021 18:03:00 COVID-19 vaccine, vector-nr, rS-ChAdOx1, PF, 0.5 mL 1 completed Not Available [facility] 12/14/20[facility] 18:03:00 Past Encounters Encounter ID Performer Location Encounter Start Date Encounter Closed Date Diagnosis/Indication Diagnosis SNOMED-CT Code Diagnosis ICD10 Code Diagnosis IMO Codes Diagnosis Note [id number] Issac Betancourt [facility] [address] [facility], [place] [address] 06/16/2017 16:14:20 06/16/2017 16:57:51 Essential hypertension 56993187 I10 stable at home but will watch carefully with Impaired f asting glycemia 154129160 R73.01 emabarking on wgt loss program eat better less carbs, walking increase Obstructiv e sleep apnea syndrome 83146607 G47.33 long discussion re symptoms [id number] Issac Betancourt [facility] [address] [facility], [place] [address] 09/21/2017 16:30:46 09/21/2017 16:58:32 Impaired fasting glycemia 619631699 R73.01 emabarking on wgt loss program eat better less carbs, walking increase continue with metformin but will lower dose due to bowels 750 bid Essential hypertension 85495908 I10 stable at home but will watch carefully with Hypotestosteronism 82006 85535 104 R79.89 will be checking testost level next month looking for a drop in levels to support testost replacemen t therapy [id number] Issac Betancourt [facility] [address] [facility],[place] [facility] [place] [address] 10/26/2017 16:21:07 10/29/2017 08:54:35 Essential hypertension 57480878 I10 stable at home but will watch carefully with Hyperlipidemia 58732190 E78.5 will need to Impaired f asting glycemia 042804566 R73.01 emabarking on wgt loss program eat better less carbs, walking increase continue with metformin but will lower dose due to bowels 750 bid Hyperparathyroidism 6699 9008 E21.3 will need new endocrinol ogist, has not been seen in quite a while currently has not had new lab for this as of late l will get lab for endocrine befopre the appt Hypotestosteronism 64122 63436 104 R79.89 will be checking testost level next month looking for a drop in levels to support testost replacemen t therapy [id number] Issac Betancourt DO [facility] [address] [facility],[place] [address] 01/26/2018 16:04:18 01/26/2018 16:50:03 Hyperlipidemia 76739283 E78.5 will need to Essential hypertension 28317236 I10 stable at home but will watch carefully with Hyperparathyroidism 6699 9008 E21.3 will need new endocrinol ogist, has not been seen in quite a while currently has not had new lab for this as of late l will get lab for endocrine befopre the appt Hepatitis C screening 41 9764053 Z11.59 Type 2 surinder betes mellitus 62540171 E11.9 new onset as it has crept up on him and a1c is now 7.4 will increase metformin to 1000 bid but will be able to bring glucose down to normal with his wgt loss program and exercise and this will no longer be an issue again as in the past [id number] Issac Betancourt DO [facility] [address] [facility],[place] [address] 03/21/2018 15:54:19 03/21/2018 16:41:05 Type 2 diabetes mellitus 85821694 E11.9 has done a great job and is feeling good careful with diet after discussion have increased metformin to 1000 bid but believe will be able to decrease down again soon but will be able to bring glucose down to normal with his wgt loss program and exercise and this will no longer be an issue again as in the past Essential hypertension 25432809 I10 stable at home but has been watching carefully with Hyperparathyroidism 6699 9008 E21.3 has new endocrinol ogist, has been seen continue to follow as noted in endocrine consult Issac Betancourt DO [facility] [address] [facility],[place] [address] 07/18/2018 16:00:59 07/19/2018 08:57:33 Type 2 diabetes mellitus 52910490 E11.9 has done a great job and is feeling good careful with diet after discussion have increased metformin to 1000 bid but believe will be able to decrease down again soon but will be able to bring glucose down to normal with his wgt loss program and exercise and this will no longer be an issue again as in the past Essential hypertension 99757608 I10 stable at home but has been watching carefully with ` Hyperparathyroidism 6699 9008 E21.3 has new endocrinol ogist, has been seen continue to follow as noted in endocrine consult Hepatitis C screening 41 6925022 Z11.59 Primary er ectile dysfunction 883963341 N52.9 [id number] Issac Betancuort DO [facility] [address] [facility] [address],[place] [address] 01/31/2019 16:07:17 01/31/2019 16:51:12 Essential hypertension 55438154 I10 stable at home but has been watching carefully with ` Type 2 surinder betes mellitus 45293256 E11.9 has done a great job and is feeling good careful with diet after discussion have increased metformin to 1000 bid but believe will be able to decrease down again at some point wgt loss program and exercise will continue Paronychia of toe 511571 002 L03.039 [id number] Issac Betancourt DO [facility] [address] [facility] [address],[place] [address] 05/31/2019 16:13:25 05/31/2019 16:51:01 Type 2 diabetes mellitus 70542815 E11.9 has done a great job and is feeling good careful with diet after discussion is doing good on metformin 1000 mg BID with no problems A1c was 6.6, dropped from 7.1 Essential hypertension 32739584 I10 high today in office 160/90, most likely white coat but states it is stable at home will continue to monitor Osteoarthritis 157386879 M19.90 more so in the left hand in his PIP joints and also in his right thumb will prescribe diclofenac and see if insurance covers it [id number] Issac Betancourt DO [facility] [address] [facility] [address],[place] [address] 10/02/2019 16:24:02 10/03/2019 10:01:00 Type 2 diabetes mellitus 00364384 E11.9 A1C 6.9 stable with BID metformin Will continue to monitor Occasional diarrhea currently Essential hypertension 32609393 I10 BP well controlled with med Hyperlipidemia 29872797 E78.5 Doing great, no need for statin Osteoarthritis 113679269 M19.90 Diclofenac did not help and could not be used regularly Will switch to diclo 75 oral with food Testostero ne level below reference range 966888287 R79.89 Feeling fatigued and low libido Need to recheck test [id number] Issac Betancourt [facility] [address] [facility],[place] [address] 01/15/2020 16:08:50 01/15/2020 16:57:28 Type 2 diabetes mellitus 57233581 E11.9 A1C 7.0 stable with BID metformin 1000mg was 6.6 but has gained 5-7 lbs since may told to have him get on a better diet Will continue to monitor Occasional diarrhea currently Essential hypertension 14578535 I10 BP well controlled with med Hyperparathyroidism 6699 9008 E21.3 has new endocrinol ogist, has been seen continue to follow as noted in endocrine consult [id number] Issac Betancourt [facility] [address] [facility], [place] [address] 02/19/2020 13:45:15 02/19/2020 16:38:07 Diarrhea 77238386 R19.7 most likely a reaction from his metformin as this has happened in the past, probably happened due change in time he took it Type 2 surinder betes mellitus 75828322 E11.9 taking his medication as per patient [id number] Issac Betancourt [facility] [address] [facility],[place] [address] 05/08/2020 16:06:14 05/10/2020 12:40:44 Type 2 diabetes mellitus 43216471 E11.9 A1C is 7.1 and was 7.0 las t check stable with BID metformin 1000mg was 6.6 but has gained 5-7 lbs since may told to have him get on a better diet Will continue to monitor Occasional diarrhea currently Essential hypertension 55394849 I10 BP well controlled with med Hyperparathyroidism 6699 9008 E21.3 has new endocrinol ogist, has been seen continue to follow as noted in endocrine consult Hepatitis C screening 41 3285111 Z11.59 Sprain of right wrist 11 92154685 6400620 S63.501A [id number] Issac Betancourt DO [facility] [address] [facility],[place] te[place] [facility] [place] [address] 08/19/2020 16:06:33 08/19/2020 16:49:29 Type 2 diabetes mellitus 63208348 E11.9 A1C is 7.1 and was 7.0 las t check stable with BID metformin 1000mg was 6.6 but has gained 5-7 lbs since may told to have him get on a better diet Will continue to monitor Occasional diarrhea currently Essential hypertension 88296313 I10 BP is not well controlled with losart 25 wiil need to increase dose Hyperlipidemia 07096744 E78.5 Doing great, no need for statin Paronychia of toe of left foot due to ingrown toenail 106354330 L60.0 [id number] Issac Betancourt DO [facility] [address] [facility],Caron Mej[place] [facility] [place] [address] 01/06/2021 15:56:34 01/06/2021 16:42:20 Type 2 diabetes mellitus 38282576 E11.9 A1C is 7.8 and was 7.0 last check stable with BID metformin 1000mg was 6.6 but has gained 5-7 lbs since may told to have him get on a better diet Will continue to monitor for the next 3 months and see if he can cut the carbs down and substitute Hyperlipidemia 94615036 E78.5 Doing great, no need for statin Essential hypertension 72201103 I10 BP is not well controlled this time but he will check at home and let us know if he is still running high if so we will increase the losartan again Hyperparathyroidism 6646 7468 E21.3 has new endocrinol ogist, has been seen continue to follow as noted in endocrine consult [id number] Issac Betancourt DO [facility] [address] [facility],[place] te[place] Mej[place] [facility] [place] [address] 04/09/2021 11:44:13 04/09/2021 16:39:16 Essential hypertension 52895373 I10 BP is not well controlled this time but he will check at home and let us know if he is still running high if so we will increase the losartan again Type 2 surinder betes mellitus 16231452 E11.9 A1C is 6.3 and is doing [...] be seen ing them in may Hyperlipidemia 80516645 E78.5 Doing great, no need for statin Osteoarthritis 614423290 M19.90 Diclofenac did not help and could not be used regularly Will switch to diclo 75 oral with food and seems to help alottold we will always need to be careful and monitor renal status etc [id number] Issac Betancourt [facility] [address] [facility], [place] [address] 07/16/2021 16:06:45 07/18/2021 16:07:44 Type 2 diabetes mellitus 61106246 E11.9 A1C is 6.3 and is doing good!!!!!! !!!!!!! it was 7.8 and was 7.0 last check stable with BID metformin 1000mg was 6.6 but has lost weight 15 lbs on a better diet Will continue to monitor for the next 3 months and see if he can cut the carbs down and substitute Essential hypertension 47929888 I10 BP is not well controlled this time but he will check at home and let us know if he is still running high if so we will increase the losartan again Hyperparathyroidism 6699 9008 E21.3 cont with new endocrinol ogist, has been seenno new treatments will be seen ing them in may Hyperlipidemia 59441574 E78.5 Doing great, no need for statin LDL 118 HDL 38 [id number] Issac Betancourt [facility] [address] [facility],[place] [address] 11/07/2021 16:08:42 11/07/2021 16:47:57 Type 2 diabetes mellitus 88566541 E11.9 A1C is still 6.3 and was 6.3 and is doing good!!!!!! !!!!!!! it was 7.8 and was 7.0 last check stable with BID metformin 1000mg was 6.6 but has lost weight 15 lbs on a better diet Will continue to monitor for the next 3 months and see if he can cut the carbs down and substitute Essential hypertension [id number] I10 BP is not well controlled this time but he will check at home and let us know if he is still running high if so we will increase the losartan again Hyperlipidemia 62857947 E78.5 Doing great, no need for statin LDL 118 HDL 38 Hand pain 62383108 M79.6 41 he will try stopping th statin for a week or two to see if this is causing an issuehe is very compliant with med but he has a bad arthritis issue with his hands Paronychia of toe of left foot [id number] L03.032 he will be treated but will be seen by dr thomas [id number] Issac Betancourt [facility] Internal Medicine [address] [facility],[place] [address] 12/16/2021 14:11:12 12/16/2021 15:00:51 Renewal of prescription [id number] Z76.0 will refill diclofenac for patient Lumbago with sciatica 20 2539651 M54.41 Constipation 67669831 K5 9.09 [place] [id number] Issac Betancourt [facility] Internal Medicine [address] [facility],[place] [address] 02/20/2022 14:57:44 02/20/2022 16:01:07 Mass of left adrenal gland [id number] 4966173 E27.8 currently not treat as it was a benign cyst Essential hypertension 99340946 I10 BP is not well controlled this time but he will check at home and let us know if he is still running high if so we will increase the losartan again Type 2 surinder betes mellitus 72712858 E11.9 A1C is now up to 8.3 and was 6.3 it was 7.8 and was 7.0 last check stable with BID metformin 1000mg Will continue to monitor for the next 3 months and see if he can cut the carbs down and substitute [id number] Issac Betancourt [facility] Internal Medicine [address] [facility] [address] [place] [address] [address] 05/06/2022 15:57:48 05/06/2022 16:53:19 Essential hypertension 66249870 I10 BP is not well controlled this time but he will check at home and let us know if he is still running high if so we will increase the losartan again Hyperparathyroidism 6699 9008 E21.3 cont with new endocrinol ogist, has been seenno new treatments will be seen ing them in may Type 2 surinder betes mellitus 94860869 E11.9 A1C is now down to 6.3 as he was up to 8.3 and was 6.3 Will continue to monitor for the next 3 months and see if he can cut the carbs down and substitute hopefully we will be able to get him off the metformin Hyperlipidemia 39648618 E78.5 Doing great, no need for statin LDL 118 HDL 38 [id number] Issac Betancourt [facility] Internal Medicine [address] [facility] [address] [place] [address] 2022 15:58:15 2022 16:49:12 Hyperparathyroidism 56250927 E21.3 cont with new endocrinol ogist, has been seenno new treatments will be seen ing them in may Essential hypertension 64685798 I10 BP is not well controlled this time but he will check at home and let us know if he is still running high if so we will increase the losartan again Type 2 surinder betes mellitus 48022387 E11.9 A1C is now down to 5.6!!!!!!! he is down 20 lbs was 6.3 as he was up to 8.3 and was 6.3 Will continue to monitor for the next 3 months and see if he can cut the carbs down and substitute hopefully we will be able to get him off the metformin Hepatitis C screening 41 9839181 Z11.59 [id number] Issac Betancourt [facility] Internal Medicine [address] [facility] [address] [place] [address] 11/24/2022 16:10:39 11/25/2022 08:08:20 Type 2 diabetes mellitus 19956547 E11.9 A1C is now down to 5.5 [...] the wgt program he is attending Hyperlipidemia 23397336 E78.5 Doing great, no need for statin LDL 118 HDL 38 [id number] Issac Betancourt DO [facility] Internal Medicine [address] [facility], [employer] [place] [address] 02/23/2023 16:04:39 02/23/2023 16:46:49 Type 2 diabetes mellitus 43255661 E11.9 has been eating low carb and high fat mod prot going thru [employer] programhas been following and doing wellstates did not keep to diet this season Essential hypertension 02462134 I10 BP is not well controlled this time but he will check at home and let us know if he is still running high if so we will increase the losartan again Hyperlipidemia 10944445 E78.5 Doing great, LDL 118 HDL 38 Renewal of prescription 752723523 Z76.0 [id number] Issac Betancourt DO [facility] Internal Medicine [address] [facility], [employer] [facility] [place] [address] 05/31/2023 11:29:11 05/31/2023 12:09:42 Tick bite 06981228 W57.XXXA will start on amox, has doxy allergy Essential hypertension 77369317 I10 BP is stable Hyperlipidemia 91355087 E78.2 needs standing orders for appt next week Type 2 surinder betes mellitus 83630011 E11.9 taking his medication as per patient [id number] Issac Betancourt DO [facility] Internal Medicine [address] [facility] [address] [place], [employer] [facility] [place] [place] [address] 06/08/2023 15:38:52 06/09/2023 09:45:22 Type 2 diabetes mellitus 27838282 E11.9 has been eating low carb and high fat mod prot going thru [employer] programhas been following and doing wellstates did not keep to diet this season Essential hypertension 01577790 I10 BP is not well controlled this time but he will check at home and let us know if he is still running high if so we will increase the losartan again Hyperlipidemia 33808679 E78.2 Doing great, LDL 118 HDL 38 Hyperparathyroidism 6699 9008 E21.3 cont with new endocrinol ogist, has been seenno new treatments will be seen ing them in may Erectile dysfunction 860 534483 F52.21 [id number] Issac Betancourt [facility] Internal Medicine [address] [facility],[place] [address] 08/27/2023 13:54:20 08/27/2023 14:46:44 Depression screening 034494518 Z13.31 0 Infection of toe 6472520 06 L08.9 start with keflexcont inue soaks Type 2 surinder betes mellitus 21138995 E11.9 taking his medication as per patient [id number] Issac Betancourt [facility] Internal Medicine [address] [facility], [place] [address] 09/06/2023 15:37:12 09/06/2023 16:18:04 Type 2 diabetes mellitus 91002090 E11.9 has been eating low carb and high fat mod prot going thru [employer] programhas been following and doing wellstates did not keep to diet this season Hyperparathyroidism 6699 9008 E21.3 cont with new endocrinol ogist, has been seenno new treatments will be seen ing them in may Essential hypertension 26445384 I10 bp at home doing well will follow and if elevated will increase the carvedilol Mass of le ft adrenal gland 0439584506 3929940 E27.8 currently not treat as it was a benign cystbut will order a ct scan follow up in [id number] Issac Betancourt [facility] Internal Medicine [address] [facility], [place] [address] 12/13/2023 15:38:28 12/13/2023 16:37:15 Essential hypertension 92453596 I10 bp at home doing well will follow and if elevated will increase the carvedilol Hyperlipidemia 43046183 E78.2 Doing great, LDL 118 HDL 38 Type 2 surinder betes mellitus 47844054 E11.9 has been eating low carb and high fat mod prot going thru [employer] programhas been following and doing wellstates did not keep to diet this season Hyperparathyroidism 6699 9008 E21.3 cont with new endocrinol ogist, has been seenno new treatments will be seen ing them in may Adult heal th examination 850284382 Z00.00 doing great Mass of le ft adrenal gland 6463531531 6581822 E27.8 currently not treat as it was a benign cystbut will order a ct scan follow up in [id number] Issac Betancourt [facility] Internal Medicine [address] [facility],[place] [address] 03/13/2024 10:23:59 03/13/2024 12:02:49 Pneumonia 753472695 J18.8 will start on prednisone , levo and cough syrup [id number] Issac Betancourt [facility] Internal Medicine [address] [facility],[place] [address] 04/12/2024 15:54:44 04/12/2024 16:35:19 Essential hypertension 23922821 I10 bp at home doing well will follow and if elevated will increase the carvedilol Hyperlipidemia 95222116 E78.2 Doing great, LDL 68 HDL 40 Hyperparathyroidism 6699 9008 E21.3 cont with endocrinol ogist, has been seenno new treatments will be seen ing them in may Type 2 surinder betes mellitus 61500653 E11.9 has been eating low carb and high fat mod prot going thru [employer] has been cheating during the holidays so a1c is up to 7.8 from 6.5 Mass of le ft adrenal gland 4150371951 9684899 E27.8 currently not treating was a benign cystbut will order a ct scan follow up in spring Issac Betancourt [facility] Internal Medicine [address] [facility],[place] [address] 07/10/2024 16:07:26 07/10/2024 16:47:50 Essential hypertension 23970676 I10 bp at home doing well will follow and if elevated will increase the carvedilol Hyperparathyroidism 6699 9008 E21.3 cont with endocrinol ogist, has been seenno new treatments will be seen ing them in may Type 2 surinder betanjali mellitus 42685002 E11.9 has been eating low carb and high fat mod prot going thru [employer] programso a1c is down to 6.6 was at 7.8 from 6.5 Depression screening 171 886714 Z13.31 neg [id number] Issac Betancourt, [facility] Internal Medicine [address],[place] [address] 10/23/2024 15:55:07 10/23/2024 16:48:01 Depression screening 276122169 Z13.31 neg Essential hypertension 73392891 I10 bp at home doing well will follow and if elevated will increase the carvedilol Hyperlipidemia 85288093 E78.2 Doing great, LDL 83 HDL 40 Type 2 surinder betes mellitus 60118311 E11.9 has been eating low carb and high fat mod prot going thru [employer] programso a1c is down to 6.7 6.6 was at 7.8 from 6.5 Health Concerns Section Related Observation LastModified by Organization Detai ls LastModified Time None Recorded Concern Status LastModified by Organization Details LastModified Time None Recorded Advance Directives Directive None Recorded Payers Insurance Date Sequence Insurance Name Policy Number Policy Chadwick Covered Member ID Chadwick Member ID Guarantor Name 09/21/2017 1 [employer] (O) [id number] Idania Gupta [id number] Lei Gupta 01/10/2020 1 [facility] [place] [id number] Lei Gupta [id number] Lei Gupta 02/23/2023 1 [facility] [id number] Lei Gupta [id number] Lei Gupta 10/20/2024 1 [employer] [id number] Lei Gupta [id number] Lei Gupta Notes Date Note Type Note Provider Name and Address Organization Details Recorded Time 12/13/19 24 text/htm l Care Management - DiabetesReported by PatientHPIFor self care, patient reportsseeing eye doctor yearly for dilated eye exam,checking feet regularly,normal range of home blood sugars (in the low 100s), andno side effects from medications. For associated symptoms, patient reportssymptoms are usually well controlled,no fatigue,no dizziness,no excessive sweating,no headaches,no confusion,no increased thirst,no increased appetite,no increased urination,no blurred vision,no numbness of feet, andno calluses on feet. Care Management - HypertensionReported by PatientHPIFor self care, patient reportsnot under emotional stress. For severity, patient reportssymptoms are improvinganddoes not interfere with daily activities. For associated symptoms, patient reportsno dizziness,no lightheadedness,no chest pain,no shortness of breath,no palpitations,no edema,no calf muscle cramps,no blurred vision,no confusion,no headaches, andno fatigue.ROS as noted in the HPI here for annual Issac Betancourt DO [address] [place], [address], [facility] Internal Medicine 12/13/2023 16:35:20 03/13/20 24 text/htm l ROS as noted in the HPI c/o sick symptoms The patient is participating in this appointment via telemedicine communication with a phone call/video calling service ([employer])The patient consents to use of these platforms [...] ear pain The symptoms started originally over [facility] patient reports exposure to fam with sick contactsThe patient symptoms mainly involves the wheezing, chest congestion, cough Pertinent comorbidities include recent illness The patient symptoms are alleviated by restThe patient symptoms are exacerbated by activity The patient has tested for COVID-19 and the results was negative SAVITA MANNING [address] [place], [address], [facility] Internal Medicine 03/13/2024 11:38:23 04/12/19 25 text/htm l ROS as noted in the HPI here for rechk andis doing ok overallhad a few bouts of bronchitisno cp no sobhome bps are in 140 /70 range has been up a bit a1c is up to 7.8 was 6.5 Issac Betancourt DO [address] [place], [address], [facility] Internal Medicine 04/12/2024 16:28:31 07/11/19 25 text/htm l Care Management - HypertensionReported by PatientHPIFor self care, patient reportsnot under emotional stress. For severity, patient reportssymptoms are improvinganddoes not interfere with daily activities. For associated symptoms, patient reportsno dizziness,no lightheadedness,no chest pain,no shortness of breath,no palpitations,no edema,no calf muscle cramps,no blurred vision,no confusion,no headaches, andno fatigue. Care Management - DiabetesReported by PatientHPIFor self care, patient reportsseeing eye doctor yearly for dilated eye exam,checking feet regularly,normal range of home blood sugars (in the low 100s), andno side effects from medications. For associated symptoms, patient reportssymptoms are usually well controlled,no fatigue,no dizziness,no excessive sweating,no headaches,no confusion,no increased thirst,no increased appetite,no increased urination,no blurred vision,no numbness of feet, andno calluses on feet.ROS as noted in the HPI a1c is down to 6.6 from 7.8 has been doing keto diet and trying his best Issac JoeyHarris Betancourt, [address] [place], [address], [facility] Internal Medicine 07/10/2024 16:46:56 10/24/19 25 text/htm l Care Management - HypertensionReported by PatientIFor self care, patient reportsnot under emotional stress. For severity, patient reportssymptoms are improvinganddoes not interfere with daily activities. For associated symptoms, patient reportsno dizziness,no lightheadedness,no chest pain,no shortness of breath,no palpitations,no edema,no calf muscle cramps,no blurred vision,no confusion,no headaches, andno fatigue.here for rechk Care Management - DiabetesReported by PatientIFor self care, patient reportsseeing eye doctor yearly for dilated eye exam,checking feet regularly,normal range of home blood sugars (in the low 100s), andno side effects from medications. For associated symptoms, patient reportssymptoms are usually well controlled,no fatigue,no dizziness,no excessive sweating,no headaches,no confusion,no increased thirst,no increased appetite,no increased urination,no blurred vision,no numbness of feet, andno calluses on feet. Care Management - HyperlipidemiaReported by PatientHPIFor control, patient reportsusually well controlled,improving, andat goal. For complications, patient reportsno coronary artery disease,no heart attack,no cardiovascular disease,no pancreatitis, andno stroke.ROS as noted in the HPI Issac Betancourt, [address] [facility], [place], [address], [facility] Internal Medicine 10/23/2024 16:33:20
--- OUTSIDE RECORDS SUMMARY | 2025-01-24 07:37 | XMS_ITS | Encounter Summary ---
Author Organization [facility] Address [address] [place] [address] Phone Care Team Providers Care Academic Advisor Name Role Phone Issac Madden DO Primary Care Provider [phone] Encounter Details Date Type Department Care Team ([facility] st Contact Info) Description 11/12/2023 Transcribe Orders [address] [address] Issac Madden DO [address] [place] [address] [email or web address] Diabetes mellitus of other type without complication, unspecified whether penitentiary insulin use (Primary Dx) Social History Tobacco Use Types Packs/Day Years Used Date Smoking Tobacco: Former Cigarettes Q uit: 1980 Smokeless Tobacco: Never Alcohol Use Standard Drinks/Week [...] on file documented as of this encounter Visit Diagnoses Diagnosis Diabetes mellitus of other type without complication, unspecified whether penitentiary insulin use- Primary documented in this encounter Care Teams Academic Advisor Relationship Specialty Start Date End Date Issac Madden DO [email or web address] PCP - General Internal Medicine 08/09/18 documented as of this encounter Additional Source Comments The information contained in this document represents components of the legal health record. It is not the complete legal health record.[facility]
--- OUTSIDE RECORDS SUMMARY | 2025-01-24 07:37 | XMS_ITS | Encounter Summary ---
Author Organization [facility] Address [address] [place] [address] [place] [address] Phone Care Team Providers Care Register Of Wills Name Role Phone Issac Madden DO Primary Care Provider [phone] Encounter Details Date Type Department Care Team ([facility] st Contact Info) Description 01/27/2021 Procedure Pass [facility] Admitting Dept Virtual Department [address] [place] [id number] Social History Tobacco Use Types Packs/Day Years [...] documented as of this encounter Visit Diagnoses Not on filedocumented in this encounter Care Teams Register Of Wills Relationship Specialty Start Date End Date Issac Madden DO PCP - General Internal Medicine 08/09/18 documented as of this encounter Additional Source Comments The information contained in this document represents components of the legal health record. It is not the complete legal health record.[facility]
[2025-01-24 13:04] LABS: MANUAL DIFF FLAG NO
[2025-01-24 13:18] LABS: Hematocrit 48.8 % (42.0-52.0); Hemoglobin 16.0 g/dl (14.0-18.0); Imm Gran Abs Auto 0.02 X10*3/uL (0.00-0.03); Imm Gran Pct Auto 0.3 % (0.0-0.4); Lymphocytes Absolute Auto 1.7 X10*3/uL (1.2-4.9); Mean Corpuscular HGB Conc 32.8 g/dl (31.0-36.0); Mean Corpuscular Hemoglobin 29.1 pg (27.0-33.0); Mean Corpuscular Volume 88.7 fL (80.0-98.0); NRBC Abs Auto 0.000 X10*3/uL (0.0-0.012); NRBC Pct Auto 0.0 /100WBC (0.0-0.2); Platelet Count 231 X10*3/uL (160-400); Red Blood Count 5.50 X10*6/uL (4.60-5.80); White Blood Count 6.1 X10*3/uL (4.8-10.8)
[2025-01-24 13:40] LABS: Albumin Level 4.5 g/dL (3.5-5.0); Anion Gap 12 (12-20); Calcium 10.0 mg/dL (8.4-10.2); Carbon Dioxide 22 mmol/L (22-29); Chloride 109 mmol/L (96-108); Cholesterol 149 mg/dL (<200); Potassium 4.9 mmol/L (3.3-5.1); Sodium 138 mmol/L (135-145); Total Protein 7.1 g/dL (6.5-8.0); Triglycerides 58 mg/dL (<150)
[2025-01-24 13:56] LABS: Alkaline Phosphatase 89 U/L (39-117); Aspartate Amino Transferase 29 U/L (5-37); Blood Urea Nitrogen 23 mg/dL (9-16); Estimated Glomerular Filt Rate > 60; HDL Cholesterol 51 mg/dL (>40)
[2025-01-24 14:00] LABS: Alanine Aminotransferase 34 U/L (0-40)
== END 2025-01-24 07:34 | disposition home or self-care (01) ==
LOC: HO.MANLDS 07:33
PROVIDERS: Visit Provider Physician Assistant
DX: E78.2 Mixed hyperlipidemia (principal); E11.9 Type 2 diabetes mellitus without complications
CPT/HCPCS: 36415; 80053; 80061; 83036; 85025